=== PATIENT | male | born 1950 | race Caucasian/White ===

== ENCOUNTER 2018-08-21 07:57 | Inpatient (IN) ==
--- NOTE | 2018-08-09 12:59 | PAT Medication Instructions ---
Medication Instructions Date of Service August 09, 2018 Home Medications aspirin 81 mg PO HS clopidogrel 75 mg PO QAM enalapril maleate 5 mg PO BID metoprolol tartrate 25 mg PO BID rosuvastatin 10 mg PO Q2D Continue as directed rosuvastatin 10 mg PO Q2D ASK your prescriber and surgeon clopidogrel 75 mg PO QAM DO NOT take the morning of surgery enalapril maleate 5 mg PO BID Take morning of surgery With a small sip of water, OTHERWISE NOTHING TO EAT OR DRINK AFTER MIDNIGHT: metoprolol tartrate 25 mg PO BID Take evening before surgery aspirin 81 mg PO HS enalapril maleate 5 mg PO BID metoprolol tartrate 25 mg PO BID Other Notes If you have any questions please call us at [phone] or [phone] or [phone] or [phone]
--- NOTE | 2018-08-10 12:03 | Anesthesiology Consultation ---
Date of Service August 10, 2018 Assessment & Plan (1) Encounter for pre-operative examination: Possible difficult airway based on body habitus/neck. Cardiology 06/19/2018: "Continue aspirin lifelong. He remains on Plavix also due to LAD stenting x2... Heart rate and BP controlled. Continue guideline-based therapy with FLAKO and beta-isabelle. Echocardiogram reviewed. EF and wall motion are within normal limits. He has been getting back injections and is okay to hold Plavix for 5 days prior to injections. Due to normal EKG, echocardiogram and vital signs, no further testing is advised." Chart Review Chart Review: Acceptable Risk for Surgery and Patient seen in Pre Admission Testing Teaching & Discussion Instructed NPO after midnight before surgery, except medications with 15 cc of water. Medication instructions provided according to the PAT guidelines. History Surgery Operation Date: 08/21/18 12:25 Proposed Procedures p L5-S1 Decompression and Fusion - Supa Tejeda DO Height/Weight Height: 5 ft 11 in Weight: 136 kg Allergies Allergy/AdvReac Type Severity Reaction Status Date / Time No Known Allergies Allergy Mild Verified 08/08/18 08:40 Medications Home Medications Medication Instructions Recorded Confirmed Last Taken aspirin 81 mg PO HS 08/08/18 08/08/18 Unknown clopidogrel 75 mg PO QAM 08/08/18 08/08/18 Unknown enalapril maleate 5 mg PO BID 08/08/18 08/08/18 Unknown metoprolol tartrate 25 mg PO BID 08/08/18 08/08/18 Unknown rosuvastatin 10 mg PO Q2D 08/08/18 08/08/18 Unknown Past Medical History Medical History CAD (coronary artery disease) s/p CT 2003, cardiac cath x 2, total 4 stents Chronic back pain LOWER BACK PAIN WITH PAIN RADIATING DOWN LEFT LEG. Degenerative disc disease Hyperlipidemia Hypertension Morbid obesity Myocardial Infarction 2003. CARD[facility]AC CATH [facility], STENT PLACEMENT X2, RECATH 2 YEARS LATER, [facility] WITH 2 STENTS. Osteoarthritis Pulmonary emphysema Noted on pre-op CXR Sleep apnea NO DEVICE Past Surgical History Surgical History History of arthroscopy B/L KNEES History of bowel resection TUMOR EXCISION WITH BOWEL RESECTION. BENIGN History of cataract extraction with lens replacement B/L History of colonoscopy History of mandibular surgery for fracture History of open reduction and internal fixation (ORIF) procedure ARM Past Anesthesia History No Hx of Anesthesia Complications and No Family Hx of Anesthesia Complications History of PONV No Motion Sickness Screening History of Motion Sickness: No Social History Smoking Status: Current every day smoker tobacco type: cigarettes Smoking cigarettes per day: HX OF 3/4-1PPD Do You Dip or Chew Tobacco: No Hx Alcohol Use: No Alcohol Intake Frequency Comment: 0 Hx Substance Use: No substance use type: does not use Exercise / Class Metabolic Activity III < 4 Walking/Shop/Light housework (+occ mild SOB, no chest pain with stairs. Limited activity 2/2 back and hip pain.) Review of Systems Pt denies any recent chest pain, shortness of breath, palpitations, cough, fever or URI. Physical Exam Vital Signs BP: 108/71 P: 70bpm SPO2: 95% RA T: 97.9 F R: 18 Constitutional + morbidly obese ENMT Mouth: + macroglossia; no loose teeth Thyromental Distance: > or= 3.5 Finger Breadths (4) Mallampati Class: II Missing several teeth Neck + short neck, + thick neck (very) and + limited neck extension (mildly) Respiratory Auscultation: + diminished lung sounds (R lung, but no adventitious sounds in R lung) and + rhonchi (L lung diffuse); + lungs not clear to auscultation Cardiovascular Rate/Rhythm: regular rate and regular rhythm Heart Sounds: no murmur Vessels: no carotid bruit Extremities: no edema distant heart sounds Testing Electrocardiogram Date: 07/20/18 Findings: + NSR @ (72) Low voltage-possibly pulmonary disease. Chest X-Ray Date: 08/10/18 Findings suggest emphysema. No focal infiltrate to suggest pneumonia. Echocardiogram Date: 06/08/18 EF: 60% Technically limited transthoracic echocardiogram. Normal left ventricular chamber size, wall thickness and contractility. Normal left ventricular systolic function. Normal right ventricular size and function. Poorly visualized cardiac valves. Laboratory Results 08/10/18 12:11 08/10/18 12:11 Blood Type O Positive 08/10/18 12:11 Antibody Screen NEGATIVE 08/10/18 12:11 PT 10.4 Seconds (9.0-12.0) 08/10/18 12:11 INR 1.0 (0.9-1.1) 08/10/18 12:11 APTT 27.2 Seconds (21.0-31.0) 08/10/18 12:11 Urine Color Yellow 08/10/18 12:11 Urine Appearance Clear (Clear) 08/10/18 12:11 Urine pH 5.0 (4.5-7.5) 08/10/18 12:11 Ur Specific [place] 1.022 (1.000-1.030) 08/10/18 12:11 Urine Protein Negative (Negative) 08/10/18 12:11 Urine Glucose (UA) Negative (Negative) 08/10/18 12:11 Urine Ketones Negative (Negative) 08/10/18 12:11 Urine Nitrite Negative (Negative) 08/10/18 12:11 Ur Leukocyte Esterase Negative (Negative) 08/10/18 12:11
--- NOTE | 2018-08-10 13:01 | XRay Report ---
XR chest Pre-admission PA/Lat CLINICAL HISTORY: 68 years-old Male presenting with preoperative assessment. TECHNIQUE: PA and lateral views of the chest were obtained. COMPARISON: 10/10/2012. FINDINGS: Atherosclerosis of the aortic arch. Cardiac silhouette normal in size. Diffusely coarsened lung yumiko ngs with mild hyperinflation. No focal opacity. Pleural thickening along the mid right lung is unchan ged. No pleural effusion or pneumothorax. Degenerative changes of the thoracic spine. Upper abdomen n ormal. IMPRESSION: 1. Findings suggest emphysema. No focal infiltrate to suggest pneumonia. Electronically signed by: Dakotah Glaser M.D. 08/10/2018 12:59 PM
[2018-08-10 13:26] LABS: Basophils # (auto) 0.05 K/uL (0-0.2); Basophils % (auto) 0.4 %; Eosinophils # (auto) 0.46 K/uL (0-0.5); Eosinophils % (auto) 4.1 %; Hematocrit (blood only) 44.5 % (42-52); Hemoglobin 15.3 g/dL (14.0-18.0); Immature Granulocytes # (auto) 0.04 K/uL (0.00-0.02); Immature Granulocytes % (auto) 0.4 %; Lymphocytes % (auto) 30.5 %; Mean Corpuscular Hgb Conc 34.4 g/dL (32-36); Mean Corpuscular Volume 95.1 fL (80-100); Neutrophils % (auto) 55.6 %; Platelet Count 280 K/uL (130-400); RDW Coefficient of Variation 13.2 % (11.5-14.5); RDW Standard Deviation 45.7 fL (36.4-46.3); Red Blood Count 4.68 M/uL (4.7-6.1); White Blood Count 11.15 K/uL (4.8-10.8)
[2018-08-10 13:35] LABS: BUN Creatinine Ratio 13.9 (10-20); Calcium 9.4 mg/dl (8.5-10.1); Creatinine Clr Calc Pharmacy 96.3 ml/min; Est GFR (African American) 86.5; Est GFR (Non-African American) 74.6; Potassium 4.4 mmol/L (3.5-5.1)
[2018-08-10 13:37] LABS: Appearance Urine Clear (Clear); Bilirubin Urine Negative (Negative); Blood Urine Negative (Negative); Color Urine Yellow; Glucose Urine UA Negative (Negative); Ketones Urine Negative (Negative); Leukocyte Esterase Urine Negative (Negative); Nitrite Urine Negative (Negative); Protein Urine Negative (Negative); Specific Gravity Urine 1.022 (1.000-1.030); Urobilinogen Urine Negative (Negative)
[2018-08-10 13:42] LABS: Partial Thromboplastin Time 27.2 Seconds (21.0-31.0); Prothrombin Time 10.4 Seconds (9.0-12.0)
[~2018-08-21 07:57] MED LIST: ACETAMINOPHEN 500 MG TAB PO SCH; CEFAZOLIN 3000MG 65 ML IV SCH; CeleBREX 200 MG CAP PO SCH; GABAPENTIN 300 MG PO SCH; LR 15ML/HR IV SCH; PROPOFOL IV EMULSION 10 MG/ML 100 ML VIAL IV ONE
[2018-08-21] MEDS ORDERED: MIDAZOLAM HCL 1 MG/ML 2ML VIAL ONE (08:09)
[2018-08-21] MEDS ORDERED: fentaNYL citrate 100 MCG/2 ML VIAL ONE ×3 (08:09→12:34)
[2018-08-21] MEDS ORDERED: ePHEDrine sulfate 50 MG/ML AMP IV PRN (08:38)
[2018-08-21] MEDS ORDERED: fentaNYL citrate 100 MCG/2 ML VIAL IV PRN (08:38)
[2018-08-21] MEDS ORDERED: ONDANSETRON INJ 2 MG/ML 2 ML VIAL IV PRN ×2 (08:38→12:39)
[2018-08-21] MEDS ORDERED: ATROPINE SULFATE 0.1 MG/ML 10ML SYR IV PRN (08:38)
[2018-08-21] MEDS ORDERED: PROMETHAZINE HCL 6.25 MG in SODIUM CHLORIDE 0.9% 50 ML IV PRN (08:38)
[2018-08-21] MEDS ORDERED: HYDROmorphone INJ 2 MG/ML SYR/VIAL IV PRN (08:38)
--- NOTE | 2018-08-21 08:43 | History & Physical Bridge Note ---
Date of Service August 21, 2018 History & Physical Bridge Note I have examined the patient, reviewed the History & Physical and in the interval since the performance of the History & Physical I have noted the following changes of clinical significance: no changes noted
--- NOTE | 2018-08-21 08:44 | History & Physical Report ---
Date of Service August 21, 2018 Assessment & Plan (1) Spinal stenosis, lumbar region with neurogenic claudication: L5-S1 decompression and fusion Present on Admission?: Yes History of Present Illness Chief Complaint: Back and leg pain Primary Care Provider: Amna Pope MD This is a 68-year-old male presents with chronic persistent back and leg pain. After failing extensive course of nonoperative care is here for surgical intervention. Allergies Allergy/AdvReac Type Severity Reaction Status Date / Time No Known Allergies Allergy Mild Verified 08/21/18 08:21 Home Medications Home Medications Medication Instructions Recorded Confirmed Type aspirin 81 mg PO HS 08/08/18 08/21/18 History clopidogrel 75 mg PO QAM 08/08/18 08/21/18 History enalapril maleate 5 mg PO BID 08/08/18 08/21/18 History metoprolol tartrate 25 mg PO BID 08/08/18 08/21/18 History rosuvastatin 10 mg PO Q2D 08/08/18 08/21/18 History Past Med/Surg History Medical History CAD (coronary artery disease) s/p [place] 2003, cardiac cath x 2, total 4 stents Chronic back pain LOWER BACK PAIN WITH PAIN RADIATING DOWN LEFT LEG. Degenerative disc disease Hyperlipidemia Hypertension Morbid obesity Myocardial Infarction 2003. CARDIAC CATH IN [facility], STENT PLACEMENT X2, RECATH 2 YEARS LATER, [facility] WITH 2 STENTS. Osteoarthritis Pulmonary emphysema Noted on pre-op CXR Sleep apnea NO DEVICE Surgical History History of arthroscopy B/L KNEES History of bowel resection TUMOR EXCISION WITH BOWEL RESECTION. BENIGN History of cataract extraction with lens replacement B/L History of colonoscopy History of mandibular surgery for fracture History of open reduction and internal fixation (ORIF) procedure ARM Social History Preferred Language: Algerian Communication Ability: Effective Papier Mache Molder Required: No Beliefs That Will Affect Care: None Current Living Situation: Family Other Information That Helps Us Care for You: No Feels Safe at Home: Yes Safety Concerns: Feels Safe At This Time Smoking Status: Current every day smoker Tobacco Type: cigarettes Cigarettes Per Day: HX OF 3/4-1PPD Do You Dip or Chew Tobacco: No Second Hand Exposure: No Tobacco Cessation Education Requested by Patient: No Hx Alcohol Use: No Hx Substance Use: No Physical Exam Vital Signs (Past 24 Hours): Last Vital Signs Temp 36.7 C 08/21/18 08:35 Pulse 62 08/21/18 08:35 Resp 18 08/21/18 08:35 BP 121/74 08/21/18 08:35 Pulse Ox 97 08/21/18 08:35 Physical Exam: Patient is alert and oriented neurologically intact bilateral extremities.
[2018-08-21] MEDS ORDERED: BUPIVACAINE/EPINEPHRINE 0.5% MPF 1:200,000 30 ML VIAL ONE (09:00)
[2018-08-21] MEDS ORDERED: BACITRACIN INJ 50,000 UNIT VIAL ONE (09:00)
[2018-08-21] MEDS ORDERED: DEXAMETHASONE SOD INJ 4 MG/ML VIAL ONE (10:25)
[2018-08-21] MEDS ORDERED: GLYCOPYRROLATE 0.2 MG/ML VIAL ONE (10:25)
[2018-08-21] MEDS ORDERED: PROPOFOL IV EMULSION 10 MG/ML 20 ML VIAL IV ONE (10:25)
[2018-08-21] MEDS ORDERED: ePHEDrine sulfate 50 MG/ML SYR ONE (10:25)
[2018-08-21] MEDS ORDERED: LIDOCAINE HCL 2% 2 ML VIAL/AMP(20MG/ML) INFIL ONE (10:25)
[2018-08-21] MEDS ORDERED: PHENYLEPHRINE 100MCG/ML 5ML SYR ONE (10:25)
[2018-08-21] MEDS ORDERED: ROCURONIUM BROMIDE 10 MG/ML 5 ML VIAL ONE (10:25)
[2018-08-21] MEDS ORDERED: ONDANSETRON INJ 2 MG/ML 2 ML VIAL ONE (10:25)
[2018-08-21] MEDS ORDERED: NEOSTIGMINE METHYLSULFATE 1 MG/ML 10ML VIAL ONE (10:25)
[2018-08-21] MEDS ORDERED: FLOSEAL HEMOSTATIC MATRIX 10ML TOP ONE (10:49)
--- NOTE | 2018-08-21 11:08 | Operative Report ---
Post Operative Report Pre & Post Diagnosis Operation Date: 08/21/18 09:55 Pre-Op Diagnosis: Spinal stenosis, lumbar region with neurogenic claudication Post-Op Diagnosis: Spinal stenosis, lumbar region with neurogenic claudication Procedure Operation Date: 08/21/18 09:55 Actual Procedures #1 lumbar decompression medial facetectomies foraminotomies L4-5 L5-S1. #2 posterior spinal fusion L4 S1 per #3 please posterior instrumentation L5-S1 using globus. #4 interbody fusion L5-S1 per #5 placement of peek cage 12 x 26 mm L5-S1 per #6 placement of local autograft in the posterior lateral gutters. #7 placement infuse collagen sponge combined with mass graft in the posterior gutters and ostial amp in the interbody space. Surgeon Supa Tejeda, DO Vp Biology Chelly Gerber Estimated Blood Loss 300 Findings See Below This patient is 5 foot 11 136 kg with a BMI of 42 kg. The patient's body habitus created significant technical difficulty throughout the procedure requiring the longest deepest retractors and instruments to perform the procedure. This contributed to at least 50% increase in the total operative time. Specimens None Indications This is a 68-year-old male with significant stenosis and radiculopathy after failing extensive course of nonoperative care like to undergo the above- mentioned procedure. Description of Procedure Patient was met with identified and informed consent obtained. Patient was then taken to the operative suite and after undergoing successful intubation placed in a prone position the Jonnathan table top of the Lawrence frame. All bony prominences well-padded eyes inspected to ensure no external pressure placed upon the peer at this point the lumbar spine is prepped and draped in normal sterile fashion. Sharp dissection with the assistance of Bovie cautery was performed down to and exposing the lamina and transverse processes of L5 and sacral ala bilaterally. From calcified fashion complete laminectomy of L5 partial laminectomy of L4 was performed including bilateral medial facetectomies and foraminotomies addressing severe stenosis. Pedicle screws were then placed in L5 and S1 levels bilaterally with assistance of fluoroscopy the process sarah placed by way of a transforaminal approach on the right complete discectomy was performed in place coated to subcortical mean bone and a 12 x 26 mm peek cage filled with osteo-amp bone graft tapped in position. The rods and locked in final position. The transverse processes of L5 and sacral ala bur to subcortical bleeding bone. Infuse collagen sponge master graft local autograft placed in the posterior lateral gutters. If the nodule drain inserted. Incision was then closed with 1 Vicryl fascia 2-0 Vicryl subcutaneous and 4-0 Monocryl for final skin closure. Steri-Strips dressings placed. Patient will continue PACU stable disc. Please note Chelly Gerber present at the entire procedure involved in patient positioning complex portions of the surgery and final skin closure. Lastly spinal cord monitoring was utilized throughout the procedure and no changes were noted. I attest to the content of the Intraoperative Record and any orders documented therein. Any exceptions are noted below.
--- NOTE | 2018-08-21 12:25 | Anesthesiology Progress Note ---
Date of Service August 21, 2018 Anesthesia Post Procedure Vital Signs Vital Signs: Temp Pulse Pulse Resp BP Pulse Ox 08/21/18 12:15 59 L 16 117/63 97 08/21/18 12:05 36.6 C 64 13 122/59 L 97 08/21/18 11:55 64 18 106/74 97 08/21/18 11:45 68 18 116/63 99 08/21/18 11:35 72 14 129/62 99 08/21/18 11:28 36.2 C L 71 20 123/66 99 08/21/18 08:35 36.7 C 62 18 121/74 97 Pain Intensity Back: Pain Intensity: 2 Transfer of Care Handoff Completed per policy Notes Mental Status: alert / awake / arousable Patient Amnestic to Procedure: Yes Nausea / Vomiting: adequately controlled Pain: adequately controlled Airway Patency, RR, SpO2: stable & adequate BP & HR: stable & adequate Hydration State: stable & adequate Anesthetic Complications: no major complications apparent
[2018-08-21] MEDS ORDERED: BISACODYL 10 MG SUPP PR PRN (12:39)
[2018-08-21] MEDS ORDERED: SOD PHOSPHATE/SOD BIPHOSPHATE ENEMA 132 ML BTL PR PRN (12:39)
[2018-08-21] MEDS ORDERED: LORazepam 0.5 MG/1 ML VIAL IV PRN (12:39)
[2018-08-21] MEDS ORDERED: ACETAMINOPHEN 1,000 MG/100 ML VIAL IV PRN (12:39)
[2018-08-21] MEDS ORDERED: FAMOTIDINE 20 MG TAB PO PRN (12:39)
[2018-08-21] MEDS ORDERED: DO NOT ADMINISTER PNEUMOCOCCAL VACCINE PRN (12:39)
[2018-08-21] MEDS ORDERED: LORazepam 0.5 MG TAB PO PRN (12:39)
[2018-08-21] MEDS ORDERED: TRAMADOL HCL 50 MG TABLET PO PRN (12:39)
[2018-08-21] MEDS ORDERED: ALUMINUM/MAGNESIUM SUSP 30 ML UDC PO PRN (12:39)
[2018-08-21] MEDS ORDERED: DO NOT ADMINISTER FLU VACCINE PRN (12:39)
[2018-08-21] MEDS ORDERED: ONDANSETRON 4 MG TAB PO PRN (12:39)
[2018-08-21] MEDS ORDERED: METOCLOPRAMIDE HCL INJ 5 MG/ML 2 ML VIAL IV PRN (12:39)
[2018-08-21] MEDS ORDERED: HYDROmorphone INJ 0.5 MG/0.5 ML SYR IV PRN (12:39)
[2018-08-21] MEDS ORDERED: ACETAMINOPHEN 500 MG TAB PO PRN (12:39)
[2018-08-21] MEDS ORDERED: PROMETHAZINE HCL 12.5 MG in SODIUM CHLORIDE 0.9% 50 ML IV PRN (12:39)
[2018-08-21] MEDS ORDERED: MAGNESIUM HYDROXIDE SUSP 30 ML UDC PO PRN (12:39)
--- NOTE | 2018-08-21 13:10 | Fluoroscopy Report ---
FL lumbar spine 2-3V CLINICAL HISTORY: L5-S1 DECOMPRESSION AND FUSION COMPARISON STUDY: None FLUOROSCOPY TIME: 15 seconds NUMBER OF FLUOROSCOPIC IMAGES: 2 FINDINGS: Image intensifier utilization for an L5-S1 laminectomy and fusion IMPRESSION: Image intensifier utilization 4 and L5-S1 laminectomy and fusion The above report was generated using voice recognition software. It may contain grammatical, syntax or spelling errors. Electronically signed by: Favian Carrero M.D. 08/21/2018 1:08 PM
[2018-08-21] MEDS: KETOROLAC TROMETHAMINE 15 MG/ML VIAL IV SCH ×2 (13:47→20:27)
[2018-08-21] MEDS: SODIUM CHLORIDE 0.9% 1000ML 1,000 ML IV SCH ×2 (13:47→20:26)
[2018-08-21] MEDS: OXYCODONE HCL IR 5 MG TAB (IMMEDIATE RELEASE) PO PRN (16:04)
[2018-08-21] MEDS: CEFAZOLIN 2000MG 2,000 MG/15 ML SYR IV SCH (16:04)
--- NOTE | 2018-08-21 19:18 | Consultation ---
Date of Consultation August 21, 2018 Assessment & Plan (1) Spinal stenosis, lumbar region with neurogenic claudication: POD#0 from L4-S1 decompression and fusion -pain control, bowel regimen as per Ortho -JUVENTINO drain in place PT ordered -follow CBC and BMP in AM (2) CAD (coronary artery disease): Stable for many years, has normal EF on most recent ECHO 2019. With 2 stents in LAD in 2003 and stent in RCA 2006. Follows with [facility] -continue ASA -Plavix on hold and restart when ok with Ortho -continue metoprolol tartrate 25mg po bid -continue Crestor every other day due to myalgias with daily dosing -holding ACEi for now (3) Hyperlipidemia: continue statin (4) Hypertension: Controlled -continue metoprolol -holding ACEi for now, watch renal function in AM (5) Sleep apnea: does not use CPAP (6) Morbid obesity: BMI 42 -counseld on weight loss and he is committed to doing so (7) Pulmonary emphysema: due to ongoing smoking -some wheeze on exam here -order prn abuterol nebs (8) Current smoker: Counseled on quitting and he is contemplating (9) DVT prophylaxis: SCDs Dispo-remain in hospital Hospitalist service will follow along History of Present Illness Requesting Physician: Dr. Tejeda Reason for Consultation: Post-op medical management Attending Physician: Supa Tejeda, History of Present Illness This pt is a 68 yo male with a h/o CAD s/p 2 stents to main LAD and another to the RCA in 2003 and 2006, respectively, obesity, lumbar spinal stenosis, HTN, HL, current smoker, ?COPD, h/o ischemic CM now resolved, and neuropathy, here post-op from a L4-S1 decompression and fusion. Reports pain is controlled, is ambulating around the room. No chest pain or SOB except his usual REYES "from being overweight." No nausea nd is tolerating po. History reviewed with him in detaila nd reviewed all scanned in outpt records Allergies Allergy/AdvReac Type Severity Reaction Status Date / Time No Known Allergies Allergy Mild Verified 08/21/18 08:21 Home Medications Home Medications Medication Instructions Recorded Confirmed Type aspirin 81 mg PO HS 08/08/18 08/21/18 History clopidogrel 75 mg PO QAM 08/08/18 08/21/18 History enalapril maleate 5 mg PO BID 08/08/18 08/21/18 History metoprolol tartrate 25 mg PO BID 08/08/18 08/21/18 History rosuvastatin 10 mg PO Q2D 08/08/18 08/21/18 History Patient History Medical History Chronic back pain LOWER BACK PAIN WITH PAIN RADIATING DOWN LEFT LEG. Degenerative disc disease Hyperlipidemia Hypertension Myocardial Infarction 2003. CARDIAC CATH IN [facility], STENT PLACEMENT X2, RECATH 2 YEARS LATER, [facility] WITH 2 STENTS. Osteoarthritis Sleep apnea NO DEVICE CAD (coronary artery disease) s/p [place] 2003, cardiac cath x 2, total 4 stents Morbid obesity Pulmonary emphysema Noted on pre-op CXR Surgical History History of arthroscopy B/L KNEES History of bowel resection TUMOR EXCISION WITH BOWEL RESECTION. BENIGN History of cataract extraction with lens replacement B/L History of colonoscopy History of open reduction and internal fixation (ORIF) procedure ARM History of mandibular surgery for fracture Family History Mother Colorectal cancer Diabetes Social History Preferred Language: Persian Communication Ability: Effective Recruitment Officer Required: No Beliefs That Will Affect Care: None Current Living Situation: Family current occupational status: retired Other Information That Helps Us Care for You: No Feels Safe at Home: Yes Safety Concerns: Feels Safe At This Time Smoking Status: Current every day smoker Tobacco Type: cigarettes Cigarettes Per Day: HX OF 3/4-1PPD Do You Dip or Chew Tobacco: No Second Hand Exposure: No Tobacco Cessation Education Requested by Patient: No Hx Alcohol Use: No Hx Substance Use: No Review of Systems Review of Systems: All systems reviewed & are unremarkable except as noted in HPI & below Physical Exam Constitutional: WD/WN, vitals as above + morbidly obese Eyes: PERRL, conjunctivae normal, anicteric sclerae ENMT: external ear and nose normal, oropharynx normal Neck: trachea midline, no thyromegaly Respiratory: normal respiratory effort, lungs clear to auscultation Cardiovascular: RRR, no murmur, no edema Gastrointestinal (Abdomen): normal bowel sounds, soft, nontender, no hepatosplenomegaly Musculoskeletal: Extremities: extremities normal to inspection; no cyanosis and no clubbing Skin: no rashes, warm and dry (dressing in place over lower back c/d/i) Neurologic: moves all extremities and awake; no focal motor deficits Psychiatric: A+Ox3, euthymic affect Results & Data Vital Signs (Past 12 Hours) Vital Signs Temp Pulse Pulse Pulse Pulse Resp BP 08/21/18 15:31 36.7 C 74 20 151/74 H 08/21/18 14:30 82 20 109/69 08/21/18 13:30 36.8 C 60 20 134/77 08/21/18 13:00 36.4 C L 62 18 119/70 08/21/18 12:30 36.5 C 58 L 58 L 18 102/66 08/21/18 12:15 59 L 16 117/63 08/21/18 12:05 36.6 C 64 13 122/59 L 08/21/18 11:55 64 18 106/74 08/21/18 11:45 68 18 116/63 08/21/18 11:35 72 14 129/62 08/21/18 11:28 36.2 C L 71 20 123/66 08/21/18 08:35 36.7 C 62 18 121/74 Pulse Ox 08/21/18 15:31 98 08/21/18 14:30 97 08/21/18 13:30 96 08/21/18 13:00 97 08/21/18 12:30 96 08/21/18 12:15 97 08/21/18 12:05 97 08/21/18 11:55 97 08/21/18 11:45 99 08/21/18 11:35 99 08/21/18 11:28 99 08/21/18 08:35 97
[2018-08-21] MEDS: ASPIRIN 81 MG CHEW PO SCH (20:28)
[2018-08-21] MEDS: METOPROLOL TARTRATE 25 MG TAB PO SCH (20:29)
[2018-08-21] MEDS: DOCUSATE SODIUM/SENNA 50/8.6MG TAB PO SCH (20:29)
[2018-08-22] MEDS ORDERED: ALBUTEROL 0.083% NEBU SOLN 3 ML VIAL NEB PRN (00:24)
[2018-08-22] MEDS: CEFAZOLIN 2000MG 2,000 MG/15 ML SYR IV SCH (01:17)
[2018-08-22] MEDS: KETOROLAC TROMETHAMINE 15 MG/ML VIAL IV SCH ×2 (01:17→07:47)
[2018-08-22] MEDS: SODIUM CHLORIDE 0.9% 1000ML 1,000 ML IV SCH (02:50)
[2018-08-22] MEDS: POLYETHYLENE (MIRALAX) 17 GM PACK PO SCH ×4 (05:47→23:35)
[2018-08-22 07:16] LABS: Hematocrit (blood only) 38.9 % (42-52); Hemoglobin 13.2 g/dL (14.0-18.0); Mean Corpuscular Hgb Conc 33.9 g/dL (32-36); Mean Platelet Volume 9.5 fL (7.4-10.4); Platelet Count 211 K/uL (130-400); RDW Standard Deviation 44.8 fL (36.4-46.3); Red Blood Count 4.14 M/uL (4.7-6.1); White Blood Count 23.08 K/uL (4.8-10.8)
[2018-08-22 07:46] LABS: Echinocytes 1+; Immature Granulocytes # (auto) 0.07 K/uL (0.00-0.02); Immature Granulocytes % (auto) 0.3 %; Lymphocytes # (auto) 1.17 K/uL (1.2-3.4); Lymphocytes % (auto) 5.1 %; Monocytes # (auto) 1.08 K/uL (0.11-0.59); Monocytes % (auto) 4.7 %; Neutrophils # (auto) 20.76 K/uL (1.4-6.5); Neutrophils % (auto) 89.9 %
[2018-08-22 07:49] LABS: BUN Creatinine Ratio 22.4 (10-20); Calcium 8.2 mg/dl (8.5-10.1); Creatinine Clr Calc Pharmacy 83.4 ml/min; Est GFR (African American) 72.5; Est GFR (Non-African American) 62.6; Potassium 4.7 mmol/L (3.5-5.1)
--- NOTE | 2018-08-22 07:49 | Anesthesiology Progress Note ---
Date of Service August 22, 2018 Anesthesia Post Procedure Vital Signs Vital Signs: Temp Pulse Pulse Pulse Pulse Resp BP 08/22/18 07:16 36.4 C L 61 20 111/62 08/22/18 02:48 36.4 C L 57 L 18 111/65 08/21/18 22:42 36.3 C L 67 16 120/63 08/21/18 19:30 36.6 C 81 20 124/69 08/21/18 15:31 36.7 C 74 20 151/74 H 08/21/18 14:30 82 20 109/69 08/21/18 13:30 36.8 C 60 20 134/77 08/21/18 13:00 36.4 C L 62 18 119/70 08/21/18 12:30 36.5 C 58 L 58 L 18 102/66 08/21/18 12:15 59 L 16 117/63 08/21/18 12:05 36.6 C 64 13 122/59 L 08/21/18 11:55 64 18 106/74 08/21/18 11:45 68 18 116/63 08/21/18 11:35 72 14 129/62 08/21/18 11:28 36.2 C L 71 20 123/66 08/21/18 08:35 36.7 C 62 18 121/74 Pulse Ox 08/22/18 07:16 97 08/22/18 02:48 94 08/21/18 22:42 92 08/21/18 19:30 97 08/21/18 15:31 98 08/21/18 14:30 97 08/21/18 13:30 96 08/21/18 13:00 97 08/21/18 12:30 96 08/21/18 12:15 97 08/21/18 12:05 97 08/21/18 11:55 97 08/21/18 11:45 99 08/21/18 11:35 99 08/21/18 11:28 99 08/21/18 08:35 97 Pain Intensity Back: Pain Intensity: 3 Notes Mental Status: alert / awake / arousable Patient Amnestic to Procedure: Yes Nausea / Vomiting: adequately controlled Pain: adequately controlled Airway Patency, RR, SpO2: stable & adequate BP & HR: stable & adequate Hydration State: stable & adequate Anesthetic Complications: no major complications apparent
[2018-08-22] MEDS: METOPROLOL TARTRATE 25 MG TAB PO SCH ×2 (08:45→21:34)
[2018-08-22] MEDS: OXYCODONE HCL IR 5 MG TAB (IMMEDIATE RELEASE) PO PRN ×2 (09:48→21:38)
--- NOTE | 2018-08-22 14:21 | Orthopedic Progress Note ---
Date of Service August 22, 2018 Assessment & Plan (1) Spinal stenosis, lumbar region with neurogenic claudication: Patient's progressing appropriately. Tolerating physical therapy. JUVENTINO drain decreasing probably. Hopefully will be able to discharge home next few days. Present on Admission?: Yes Subjective Patient's back pain is controlled leg symptoms Physical Exam Physical Exam: On exam is good strength testing is been ambulating halls appears comfortable. Results & Data Vital Signs (Past 12 Hours) Vital Signs Temp Pulse Resp BP Pulse Ox 08/22/18 11:27 36.5 C 69 17 115/57 L 96 08/22/18 07:16 36.4 C L 61 20 111/62 97 08/22/18 02:48 36.4 C L 57 L 18 111/65 94
[2018-08-22] MEDS: DOCUSATE SODIUM/SENNA 50/8.6MG TAB PO SCH (21:33)
[2018-08-22] MEDS: ASPIRIN 81 MG CHEW PO SCH (21:34)
[2018-08-22] MEDS ORDERED: ROSUVASTATIN CALCIUM 10 MG TAB PO SCH (22:00)
[2018-08-22 23:07] VITALS: O2SAT 96
--- NOTE | 2018-08-23 00:17 | Hospitalist Progress Note ---
Date of Service Date of service is 08/22/2018 and not 08/23/2018 August 23, 2018 Assessment & Plan (1) Spinal stenosis, lumbar region with neurogenic claudication: POD#1 from L4-S1 decompression and fusion-doing very well postoperatively -Continue pain control, bowel regimen as per Ortho PT Hemoglobin with only mild drop to 13 from 15, leukocytosis secondary to steroids preoperatively and not concerning -Postoperative management as per orthopedic spine surgeon (2) CAD (coronary artery disease): Stable for many years, has normal EF on most recent ECHO 2018. With 2 stents in LAD in 2003 and stent in RCA 2006. Follows with [facility] No evidence of acute coronary syndrome in the perioperative. -continue ASA -Plavix remains on hold and restart when ok with Ortho -continue metoprolol tartrate 25mg po bid -continue Crestor every other day due to myalgias with daily dosing -Continue holding ACEi for now as blood pressures are low normal-can likely restart upon discharge (3) Hyperlipidemia: continue statin (4) Hypertension: Controlled -continue metoprolol -holding ACEi for now, can restart on discharge as above (5) Sleep apnea: does not use CPAP (6) Morbid obesity: BMI 42 -counseled on weight loss and he is committed to doing so (7) Pulmonary emphysema: due to ongoing smoking -some wheeze on exam here that is now improved Not requiring oxygen -Continue prn abuterol nebs (8) Current smoker: Counseled on quitting and he is contemplating (9) DVT prophylaxis: SCDs Dispo-remain in hospital but likely to discharge to home in 1 to 2 days Hospitalist service will sign off at this time as patient is very medically stable. Please feel free to reconsult or call if any acute concerns arise. Discussed with Dr. Tejeda. Subjective Patient feeling very well, he ambulated today, pain is controlled in the lower back. He has no radicular pain down the legs. He denies chest pain or shortness of breath, denies lightheadedness or nausea. He is tolerating p.o. He has no complaints. He has not moved his bowels but feels like it is about to happen soon. Review of Systems Review of Systems: All systems reviewed & are unremarkable except as noted in HPI & below Physical Exam Constitutional: WD/WN, vitals as above + morbidly obese Eyes: PERRL, conjunctivae normal, anicteric sclerae ENMT: external ear and nose normal, oropharynx normal Neck: trachea midline, no thyromegaly Respiratory: normal respiratory effort, lungs clear to auscultation Cardiovascular: RRR, no murmur, no edema Gastrointestinal (Abdomen): normal bowel sounds, soft, nontender, no hepatosplenomegaly Musculoskeletal: Extremities: extremities normal to inspection; no cyanosis and no clubbing Skin: no rashes, warm and dry (dressing in place over lower back c/d/i) Neurologic: moves all extremities and awake; no focal motor deficits Psychiatric: A+Ox3, euthymic affect Results & Data Vital Signs (Past 12 Hours) Vital Signs Temp Pulse Resp BP Pulse Ox 08/22/18 23:06 36.5 C 61 18 115/63 96 08/22/18 15:10 36.5 C 61 16 115/62 94 Laboratory Results 08/22/18 08/22/18 Range/Units 06:58 06:58 WBC 23.08 H (4.8-10.8) K/uL RBC 4.14 L (4.7-6.1) M/uL Hgb 13.2 L (14.0-18.0) g/dL Hct 38.9 L (42-52) % MCV 94.0 (80-100) fL MCH 31.9 (25-34) pg MCHC 33.9 (32-36) g/dL RDW Std Deviation 44.8 (36.4-46.3) fL RDW Coeff of Grace 13.0 (11.5-14.5) % Plt Count 211 (130-400) K/uL MPV 9.5 (7.4-10.4) fL Immature Gran % (Auto) 0.3 % Neut % (Auto) 89.9 % Lymph % (Auto) 5.1 % [place] % (Auto) 4.7 % Eos % (Auto) 0.0 % Baso % (Auto) 0.0 % Immature Gran # (Auto) 0.07 H (0.00-0.02) K/uL Neut # (Auto) 20.76 H (1.4-6.5) K/uL Lymph # (Auto) 1.17 L (1.2-3.4) K/uL [place] # (Auto) 1.08 H (0.11-0.59) K/uL Eos # (Auto) 0.00 (0-0.5) K/uL Baso # (Auto) 0.00 (0-0.2) K/uL Echinocytes 1+ Sodium 136 (136-145) mmol/L Potassium 4.7 (3.5-5.1) mmol/L Chloride 106 (98-107) mmol/L Carbon Dioxide 25 (21-32) mmol/L Anion Gap 5.0 (3-11) BUN 26 H (7-18) mg/dl Creatinine 1.18 (0.6-1.4) mg/dl Est Cr Clr Drug Dosing 83.4 ml/min Est GFR ( Amer) 72.5 Est GFR (Non-Af Amer) 62.6 BUN/Creatinine Ratio 22.4 H (10-20) Glucose 123 H (70-99) mg/dl Calcium 8.2 L (8.5-10.1) mg/dl
[2018-08-23] MEDS: POLYETHYLENE (MIRALAX) 17 GM PACK PO SCH ×2 (06:02→13:22)
[2018-08-23 06:56] VITALS: BP 137/65; TEMP 97.3
[2018-08-23] MEDS: OXYCODONE HCL IR 5 MG TAB (IMMEDIATE RELEASE) PO PRN (07:44)
[2018-08-23] MEDS: METOPROLOL TARTRATE 25 MG TAB PO SCH (07:45)
[2018-08-23 12:20] VITALS: PULSE 62
--- NOTE | 2018-08-23 14:24 | Orthopedic Progress Note ---
Date of Service August 23, 2018 Assessment & Plan (1) Spinal stenosis, lumbar region with neurogenic claudication: This time we will discontinue his drain and discharge home. Discharge orders and instructions found in chart for further review. Present on Admission?: Yes Subjective Patient's back pain is controlled leg symptoms improved. Physical Exam Physical Exam: Exam is good strength testing appears comfortable. Results & Data Vital Signs (Past 12 Hours) Vital Signs Temp Pulse Pulse Resp BP Pulse Ox 08/23/18 12:19 36.3 C L 62 69 20 137/65 96 08/23/18 06:55 36.3 C L 69 20 137/65 96
--- NOTE | 2018-08-23 14:25 | Discharge Summary ---
Date of Service August 23, 2018 Admission HPI Per Admitting Provider This is a 68-year-old male presents with chronic persistent back and leg pain. After failing extensive course of nonoperative care is here for surgical intervention. Principal Diagnosis Lumbar spinal stenosis with radiculopathy Discharge Data Allergies Allergy/AdvReac Type Severity Reaction Status Date / Time No Known Allergies Allergy Mild Verified 08/21/18 08:21 Consultations 08/21/18 12:39 Consult Case Management - Discharge Planning Routine 08/21/18 13:01 Consult Hospitalist Routine Procedures Performed Operation Date: 08/21/18 09:55 Actual Procedures p L5-S1 Decompression and Fusion with Spinal Cord Monitoring(Not Applicable) - Supa Tejeda DO Ordered Studies 08/21/18 09:55 FL fluoroscopy <1hr Routine FL lumbar spine 2-3V Routine Hospital Course (1) Spinal stenosis, lumbar region with neurogenic claudication: Postop day #1 his leg symptoms are improved he was up and ambulate and well. Progressive postop day #2. JUVENTINO drain decreasing appropriately. Subsequently discharged home. Discharge orders and instructions from the chart for further review. Total Time Total Time Spent Total Time Spent (In Minutes): 20 minutes Discharge Plan Discharge Items Patient Disposition: Home - Self-Care Reason For Visit: Other Biomechanical Lesions of Lumbar Region Discharge Diagnosis: lumbar stenosis Discharge Goals: Improve function Activity: Per 'Additional Instructions' section Non-emergency contact: Primary Care Provider Call non-emergency contact if: you have any medication questions Follow-up/Referrals: Amna Pope MD [Primary Care Provider] - Diet: Regular Addtl Provider Instructions: ACTIVITY RECOMMENDATIONS: SELF CARE INSTRUCTIONS AFTER THORACIC/LUMBAR FUSIONS 1. You may walk to your tolerance. It is good exercise for your legs and back. Expect some back and intermittent leg aches and pains. 2. You may perform "counter-top" level activities (make a sandwich, kei with a project, etc.). 3. No bending or lifting of more than 10 pounds or back twisting of any nature (roll like a log when turning in bed). 4. You may ride in a car for 20-30 minutes at a time. No driving until after your first visit with your doctor. 5. Frequent changes of position and restricting sitting to 30 minutes at a time will help limit the amount of back spasms and stiffness you may experience. 6. You may discontinue the use of ambulatory aids (cane, crutches, etc.) once your strength and confidence allow. 7. You may soils engineer the shower and let water strike your incision when you arrive home at least once daily. Do not take a tub bath, sit in a hot tub or go into a swimming pool until after your first recheck in the office. SPECIAL CARE INSTRUCTIONS: VERY IMPORTANT TO READ AND REVIEW A. Your surgical incision has been closed with a cosmetic suture under the skin that will dissolve in about 6 weeks. In 14 days, you can use a pair of clean scissors and cut the suture that is left outside of the skin at the ends of your incision. 1. The small skin tapes can be removed 7 days after surgery if they have not fallen off by that point. 2. You may keep the wound open to air as much as possible to promote healing after post-op day number 5 unless told otherwise by your doctor. 3. If you think the wound looks like it is becoming infected (redness or worsening drainage) and/or you are experiencing fever, chill or worsening back pain and muscle spasms, contact the office so that we may evaluate you as soon as possible. B. Complications are uncommon, but please contact us if you have any signs or symptoms of: 1. wound infection (fever higher than 102.5 degrees F, redness, separation of wound, drainage, or increasing pain from the incision) 2. blood clots in legs (pain, swelling, redness and warmth in legs) 3. urinary tract infection (fever higher than 102.5 degrees F, burning upon urination or increased frequency of urination) 4. nerve problems (inability to walk on your toes or heels, numbness, loss of bowel or bladder control) 5. any other symptoms that concern you C. Please call the office at if you have any concerns or questions about your operation or recovery. D. No smoking! Smoking drastically decreases the chance of a solid fusion. E. Do not take any anti-inflammatory medications (Indocin, Advil, Motrin, Aspirin, Naprosyn, etc.) as these may inhibit the chance of a solid fusion. Tylenol is okay to take for pain. MANAGING PAIN AFTER SPINAL SURGERY 1. Narcotic medication is intended for short-term use and will be provided for surgical pain. Surgical pain usually lasts for a period of 4-6 weeks. Narcotic medication includes Percocet, Vicodin, Darvocet, Tylenol #3 or Lortab. 2. Longer-term pain is more appropriately treated with non-narcotic medication such as Tylenol ES. 3. Muscle spasm is not appropriately treated with narcotics. Muscle relaxers such as Soma, Flexeril or Skelaxin can be used along with Tylenol ES. 4. Remember that we all live with some "aches and pains". This is not unusual or uncommon after an injury or as we get older. a. Back pain is expected and may include muscle spasms for 4 to 6 weeks after surgery. The pain should gradually improve. If the pain worsens for no apparent reason, please contact the office. b. Intermittent leg pain may also be experienced and should not be concerned about unless it worsens for no apparent reason. If so, please contact the office. 5. We will provide appropriate medication within the normal guidelines of their prescribed use. We will also be very cautious and aware of potential abuse and extended duration of patients' medication needs. a. Pain medications are for your comfort and to assist with sleep and rest so that the tissue can heal. They are not provided in order to return to normal activity and should not be used through the day. To do so or worsening pain at night can result from ongoing tissue damage and development of tolerance to the prescribed medicine. 6. Please allow 2-3 days to process refills. Prescriptions will not be mailed but must be picked up at the office. FOLLOW UP VISIT: Keep your scheduled follow-up appointment. Any questions, please call the office at . Prescriptions: New tramadol 50 mg Tablet 50 mg PO Q4H PRN (Reason: Pain, Moderate) Qty: 30 RF: 0 oxycodone 5 mg Tablet 5 mg PO Q4H PRN (Reason: Pain, Severe) Qty: 30 RF: 0 Continued aspirin 81 mg Tablet,Chewable 81 mg PO HS RF: 0 rosuvastatin 10 mg Tablet 10 mg PO Q2D RF: 0 enalapril maleate 5 mg Tablet 5 mg PO BID RF: 0 clopidogrel 75 mg Tablet 75 mg PO QAM RF: 0 metoprolol tartrate 25 mg Tablet 25 mg PO BID RF: 0 Stand-Alone Forms: [facility] [place], [facility] [employer]/Other Patient Handouts: Safety Back Into and Out Bed Discharge Orders: Discharge Order (Routine); Ordered 08/23/18 Ordered By: Supa Tejeda Admission Data Admit Date/Time: 08/21/18 11:52 Attending Provider: Supa Tejeda Admit Provider: Supa Tejeda Primary Care Provider: Amna Pope Other Providers: Blade Mata ; Olga Thomas Service: Surgical Services Other Interventions: Discharge Summary Assessment (RN) Last Done: 08/23/18 12:19
== END 2018-08-23 15:11 | disposition home or self-care (01) | DRG 454 ==
LOC: ASU 07:57 → 3E 11:52

== ENCOUNTER 2018-08-28 13:38 | Observation (INO) ==
[2018-08-28] MEDS ORDERED: HYDROmorphone INJ 1 MG/ML SYRINGE IV PRN (14:05)
[2018-08-28] MEDS ORDERED: ONDANSETRON 4 MG OD TAB PO STA (14:05)
[2018-08-28 14:35] LABS: Mean Corpuscular Hgb Conc 34.4 g/dL (32-36); Mean Platelet Volume 9.3 fL (7.4-10.4); Platelet Count 277 K/uL (130-400)
[2018-08-28 14:56] LABS: Albumin Level 2.9 gm/dl (3.4-5.0); BUN Creatinine Ratio 16.9 (10-20); Creatinine Clr Calc Pharmacy 105.8 ml/min; Est GFR (Non-African American) 84.6; Potassium 4.1 mmol/L (3.5-5.1)
[2018-08-28 15:00] LABS: Albumin Globulin Ratio 0.7 (0.9-2); Bilirubin,Total 0.4 mg/dl (0.2-1); Total Protein 6.9 gm/dl (6.4-8.2)
[2018-08-28 15:31] LABS: ALC (manual) 2.86 K/uL (1.2-3.4); Basophils % (manual) 0.9 %; Eosinophils # (manual) 0.41 K/uL (0-0.5); Eosinophils % (manual) 3.5 %; Hematocrit (blood only) 38.7 % (42-52); Hemoglobin 13.3 g/dL (14.0-18.0); Lymphocytes # (manual) 2.86 K/uL (1.2-3.4); Lymphocytes % (manual) 24.6 %; Mean Corpuscular Volume 94.2 fL (80-100); Monocytes # (manual) 0.92 K/uL (0.11-0.59); Monocytes % (manual) 7.9 %; Myelocytes % (manual) 0.9 %; Neutrophils % (manual) 62.2 %; RDW Coefficient of Variation 13.1 % (11.5-14.5); RDW Standard Deviation 45.1 fL (36.4-46.3); Red Blood Count 4.11 M/uL (4.7-6.1); White Blood Count 11.63 K/uL (4.8-10.8)
--- NOTE | 2018-08-28 15:50 | History & Physical Report ---
Date of Service August 28, 2018 Assessment & Plan (1) Spinal stenosis, lumbar region with neurogenic claudication: At this time I would like to admit the patient for a short course of IV steroids to control some of the inflammation. Would initiate physical therapy in the a.m. and assess his progress. Hopefully be able to discharge home soon as possible. Present on Admission?: Yes History of Present Illness Chief Complaint: Left leg pain Primary Care Provider: Amna Pope MD This is a 68-year-old male well-known to me status post lumbar decompression fusion little over week ago. He been doing nicely postoperatively but over the past day or so began experiencing left leg pain. The pain seems to be dominant in the left buttock posterior thigh occasionally below the knee. It is associated with weightbearing. He gets relief with sitting and lying supine. He denies any fevers or chills denies any right lower extremity pain denies any recent trauma fall or event. Allergies Allergy/AdvReac Type Severity Reaction Status Date / Time No Known Allergies Allergy Mild Verified 08/28/18 15:14 Home Medications Home Medications Medication Instructions Recorded Confirmed Type aspirin 81 mg PO HS 08/08/18 08/28/18 History clopidogrel 75 mg PO QAM 08/08/18 08/28/18 History enalapril maleate 5 mg PO BID 08/08/18 08/28/18 History metoprolol tartrate 25 mg PO BID 08/08/18 08/28/18 History rosuvastatin 10 mg PO Q2D 08/08/18 08/28/18 History tramadol 50 mg PO Q4H PRN #30 tab 08/23/18 08/28/18 Rx Past Med/Surg History Social History Preferred Language: Syriac Communication Ability: Effective Beliefs That Will Affect Care: None Current Living Situation: Family current occupational status: retired Feels Safe at Home: Yes Smoking Status: Current every day smoker Tobacco Type: cigarettes Cigarettes Per Day: HX OF 3/4-1PPD Second Hand Exposure: No Hx Alcohol Use: No Hx Substance Use: No Physical Exam Vital Signs (Past 24 Hours): Last Vital Signs Temp 36.8 C 08/28/18 13:41 Pulse 93 H 08/28/18 15:04 Resp 20 08/28/18 15:04 BP 105/50 L 08/28/18 15:04 Pulse Ox 92 08/28/18 15:04 Physical Exam: On exam incisions healing appropriately. Steri-Strips are in place. There is some ecchymosis across the bilateral buttocks. He exhibits a plus 5 out of 5 right plantar flexion dorsiflexion quadricep on the left he has some modest 4+/5 dorsiflexion 5/5 quadricep. He is very comfortable sitting in the side of the bed. He has no tension signs with straight leg raising. He does have difficulty when I have him stand with reproduction of pain in the left buttock.
[2018-08-28] MEDS ORDERED: LORazepam 1 MG/2 ML VIAL IV PRN (17:57)
[2018-08-28] MEDS ORDERED: LORazepam 1 MG TAB PO PRN (17:57)
[2018-08-28] MEDS ORDERED: PROMETHAZINE HCL 12.5 MG in SODIUM CHLORIDE 0.9% 50 ML IV PRN (17:57)
[2018-08-28] MEDS ORDERED: ACETAMINOPHEN 325 MG TAB PO PRN (17:57)
[2018-08-28] MEDS ORDERED: TRAMADOL HCL 50 MG TABLET PO PRN ×2 (17:57)
[2018-08-28] MEDS ORDERED: ONDANSETRON INJ 2 MG/ML 2 ML VIAL IV PRN (17:57)
[2018-08-28] MEDS: dexAMETHasone 8 MG in SYRINGE 0 ML IV SCH (18:30)
[2018-08-28] MEDS: LACTATED RINGER'S 1,000 ML IV SCH (18:30)
[2018-08-28] MEDS: OXYCODONE/ACETAMINOPHEN 5mg/325mg TAB PO PRN (19:44)
--- NOTE | 2018-08-28 20:26 | XRay Report ---
XR lumbar spine min 4V routine CLINICAL HISTORY: 68 years-old Male presenting with postop. TECHNIQUE: Frontal, bilateral oblique, lateral, and cone-down lateral views of the lumbar spine were obtained in standing position. COMPARISON: MR of the lumbar spine from 05/17/2018. FINDINGS: There has been interval bilateral posterior transpedicular screw and sarah fixation of L5-S1 with inter body spacer placement and L5 laminectomy. No hardware breakage or gross malalignment allowing for sen sitivity of radiography. Mild levocurvature centered at L2-3 with resulting eccentric disc height loss on the right at L2-3. O therwise lumbar lordosis is preserved. Minimal anterior vertebral body height loss of L2 is similar t o prior exam. No new vertebral body height loss. Mild multilevel intervertebral disc height loss with multilevel osteophytosis noted. IMPRESSION: 1. Expected postsurgical appearance status post L5-S1 posterior lumbar fusion and laminectomy. 2. Multilevel degenerative changes and scoliosis as on prior MR. Electronically signed by: Dakotah Glaser M.D. 08/28/2018 8:25 PM
--- NOTE | 2018-08-28 20:38 | Emergency Department Note ---
Entered by Benigno Hernández acting as a scribe for Octaviano Nowak MD ED Provider Note CHIEF COMPLAINT: left-sided hip, leg and back pain s/p lumbar fusion HISTORY OF PRESENT ILLNESS: The patient is a 68 year old male who presents to the Emergency Room with complaints of persistent left-sided hip, leg and back pain. The patient reports that one week ago he had fusion of L4 and L5 performed by Dr. Tejeda. He states that he was doing well until he was discharged home a few days later, and he now reports 12/10 pain when walking. He rates it 3/10 when at rest. He states that his current pain is the same pain he experienced before the surgery, and he denies any new numbness, weakness or tingling. He has been taking oxycodone and Tramadol without significant improvement. He denies any problems with bowel or bladder control. He also denies fevers aside from a couple days after surgery, and there has been no significant drainage from the site of incision per family. The patient came to the ER after calling Dr. Quintana office prior to arrival. Pt denies LOC, headache, diaphoresis, visual changes, neck pain, chest pain, breathing difficulties, nausea, vomiting, abdominal pain, back pain, melena, hematochezia, urinary symptoms, lymphadenopathy, rash, or other complaints. REVIEW OF SYSTEMS: See HPI for pertinent positives and negatives. A total of ten systems were reviewed and were otherwise negative. PMHx/PSHx: s/p lumbar fusion hypertension CAD SOCIAL HISTORY: Patient lives at home. PHYSICAL EXAM: GENERAL: Awake, alert, uncomfortable-appearing, in no distress HENT: Normocephalic, atraumatic. Oropharynx unremarkable. EYES: PERRL. Normal conjunctiva. Sclera non-icteric. NECK: Inspection normal. Non-tender. Supple. No nuchal rigidity. FROM. No masses. RESPIRATORY: Clear to auscultation. No wheezes. No rales. Normal respiratory ef fort. CARDIAC: Normal rate. Normal rhythm. No murmurs. No rubs. Extremities warm and well perfused. Pulses equal. No JVD. GI: Soft, non-distended. No tenderness to palpation. No rebound or guarding. No masses. RECTAL: Deferred. MUSCULOSKELETAL: Atraumatic. Chest examination reveals no tenderness. Left sciatic notch tenderness to palpation. There is ecchymosis in the lumbar region. The incision is clean, dry and intact. Steri-strips are in place and there is no drainage. There is no CVA tenderness to palpation. No joint edema. LOWER EXTREMITIES: Calves are equal size bilaterally and non-tender. No edema. No discoloration. NEURO: Normal sensorium. No sensory or motor deficits noted. SKIN: No rash or jaundice noted. EMERGENCY DEPARTMENT COURSE: 1402: Past medical records reviewed. The patient was evaluated in room A3, and a complete history and physical examination were performed. 1524: I consulted Dr. Tejeda Spinal Surgery, who will evaluate the patient. 1623: Dr. Tejeda has evaluated the patient, and he will be hospitalized. MEDICAL DECISION MAKING: Patient presented with postoperative back pain. Etiologies such as postoperative pain, fracture, aortic disease, metastatic disease, infection, renal colic, gastrointestinal, lumbago, sciatica, cauda equina, as well as others were entertained. He was treated with IV Dilaudid and Zofran. He felt somewhat better although still had pain with movement. He did have a slight drop in his blood pressure temporarily after the medication. The patient had unremarkable CBC and chemistry panel except for slight leukocytosis although this is better. He did receive steroids with surgery. He has no saddle anesthesia or bowel or bladder incontinence. I did consult with his spine surgeon, Dr. Tejeda. He did evaluate him in the ER. He admitted him for pain control and further management. Please see his note. IMPRESSION: Postoperative back pain PLAN: evaluation by Dr. Tejeda The scribe's documentation has been prepared under my direction and personally reviewed by me in its entirety. I confirm that the note above accurately reflects all work, treatment, procedures, and medical decision making performed by me. Impression & Plan Back pain Past Med/Surg History Medical History CAD (coronary artery disease) s/p [place] 2003, cardiac cath x 2, total 4 stents Chronic back pain LOWER BACK PAIN WITH PAIN RADIATING DOWN LEFT LEG. Degenerative disc disease Hyperlipidemia Hypertension Morbid obesity Myocardial Infarction 2003. CARDIAC CATH IN [facility], STENT PLACEMENT X2, RECATH 2 YEARS LATER, AKHIL WITH 2 STENTS. Osteoarthritis Pulmonary emphysema Noted on pre-op CXR Sleep apnea NO DEVICE Surgical History History of arthroscopy B/L KNEES History of bowel resection TUMOR EXCISION WITH BOWEL RESECTION. BENIGN History of cataract extraction with lens replacement B/L History of colonoscopy History of mandibular surgery for fracture History of open reduction and internal fixation (ORIF) procedure ARM Family History Mother Colorectal cancer Diabetes Social History Preferred Language: Upper Sorbian Communication Ability: Effective Place Change Roof Bolter Required: No Beliefs That Will Affect Care: None Current Living Situation: Family and Significant Other current occupational status: retired Other Information That Helps Us Care for You: No Feels Safe at Home: Yes Safety Concerns: Feels Safe At This Time Smoking Status: Current every day smoker Tobacco Type: cigarettes Cigarettes Per Day: 15-20 Do You Dip or Chew Tobacco: No Second Hand Exposure: No Tobacco Cessation Education Requested by Patient: No Hx Alcohol Use: No Hx Substance Use: No Results & Data Vital Signs Vital Signs - 24 hr 08/28/18 13:41 08/28/18 15:04 08/28/18 15:06 Temperature 36.8 C Temperature Source Oral Sepsis Recent Fever Within 48 Hours No Sepsis New/Unexplained Change in Mental Status No Sepsis Action Taken by Nursing No Action Required Pulse Rate 70 59 L Pulse Rate [Left Finger] 93 H Pulse Rate from SpO2 Sensor 59 L Respiratory Rate 20 20 17 Respiratory Depth Normal Blood Pressure 124/69 114/41 L Blood Pressure [Right Arm] 105/50 L Blood Pressure Mean 87 65 Blood Pressure Mean [Right Arm] 68 Blood Pressure Position Sitting Blood Pressure Position [Right Arm] Lying Pulse Oximetry 95 92 93 Oxygen Delivery Method Room Air Room Air 08/28/18 15:32 08/28/18 16:19 08/28/18 16:31 Temperature Temperature Source Sepsis Recent Fever Within 48 Hours Sepsis New/Unexplained Change in Mental Status Sepsis Action Taken by Nursing Pulse Rate 67 59 L 63 Pulse Rate [Left Finger] Pulse Rate from SpO2 Sensor Respiratory Rate 16 16 15 Respiratory Depth Blood Pressure 82/55 L 126/76 144/91 H Blood Pressure [Right Arm] Blood Pressure Mean 64 92 108 Blood Pressure Mean [Right Arm] Blood Pressure Position Blood Pressure Position [Right Arm] Pulse Oximetry Oxygen Delivery Method Home Medications Current Medication List: was personally reviewed by me Laboratory Data Attestation: I reviewed the patient's lab results. Result diagrams: 08/28/18 14:22 08/28/18 14:22 Lab Results 08/28/18 08/28/18 Range/Units 14:22 14:22 WBC 11.63 H (4.8-10.8) K/uL RBC 4.11 L (4.7-6.1) M/uL Hgb 13.3 L (14.0-18.0) g/dL Hct 38.7 L (42-52) % MCV 94.2 (80-100) fL MCH 32.4 (25-34) pg MCHC 34.4 (32-36) g/dL RDW Std Deviation 45.1 (36.4-46.3) fL RDW Coeff of Grace 13.1 (11.5-14.5) % Plt Count 277 (130-400) K/uL MPV 9.3 (7.4-10.4) fL Neutrophils % (Manual) 62.2 % Lymphocytes % (Manual) 24.6 % Monocytes % (Manual) 7.9 % Eosinophils % (Manual) 3.5 % Basophils % (Manual) 0.9 % Myelocytes % (Man) 0.9 % Neutrophils # (Manual) 7.23 H (1.4-6.5) K/uL Total Absolute Neuts 7.23 H (1.4-6.5) K/uL Lymphocytes # (Manual) 2.86 (1.2-3.4) K/uL Total Abs Lymphocytes 2.86 (1.2-3.4) K/uL Monocytes # (Manual) 0.92 H (0.11-0.59) K/uL Eosinophils # (Manual) 0.41 (0-0.5) K/uL Basophils # (Manual) 0.10 (0-0.2) K/uL Myelocytes # (Manual) 0.10 H (0-0) K/uL Sodium 136 (136-145) mmol/L Potassium 4.1 (3.5-5.1) mmol/L Chloride 102 (98-107) mmol/L Carbon Dioxide 26 (21-32) mmol/L Anion Gap 8.0 (3-11) BUN 16 (7-18) mg/dl Creatinine 0.92 (0.6-1.4) mg/dl Est Cr Clr Drug Dosing 105.8 ml/min Est GFR ( Amer) 98.0 Est GFR (Non-Af Amer) 84.6 BUN/Creatinine Ratio 16.9 (10-20) Glucose 97 (70-99) mg/dl Calcium 9.0 (8.5-10.1) mg/dl Total Bilirubin 0.4 (0.2-1) mg/dl AST 22 (15-37) U/L ALT 31 (12-78) U/L Alkaline Phosphatase 103 (45-117) U/L Total Protein 6.9 (6.4-8.2) gm/dl Albumin 2.9 L (3.4-5.0) gm/dl Globulin 4.0 (2.5-4.0) gm/dl Albumin/Globulin Ratio 0.7 L (0.9-2) Administered Medications Lactated Ringer's (Lr) 1,000 mls @ 75 mls/hr IV .[id number] RAQUEL Stop: 09/27/18 17:56 Last Admin: 08/28/18 18:30 Dose: 75 mls/hr Documented by: [id number] Dexamethasone 8 mg/ Syringe 2 mls @ 1 mls/min IV Q8H RAQUEL Stop: 08/29/18 10:01 Last Admin: 08/28/18 18:30 Dose: 1 mls/min Documented by: [id number] Oxycodone/Acetaminophen (Percocet 5mg/325mg) 1 - 2 tab PO Q4H PRN PRN Reason: moderate to severe pain Stop: 09/11/18 17:56 Last Admin: 08/28/18 19:44 Dose: 2 tab Documented by: [id number] Discontinued Medications Hydromorphone HCl (Dilaudid) 1 mg IV Q15M PRN PRN Reason: Pain Stop: 09/11/18 14:04 Last Admin: 08/28/18 14:43 Dose: 1 mg Documented by: [id number] Ondansetron HCl (Zofran Odt) 4 mg PO NOW STA Stop: 08/28/18 14:06 Last Admin: 08/28/18 14:43 Dose: 4 mg Documented by: [id number] Blood Pressure Blood Pressure Findings: Low blood pressure Additional Comments: further management by Dr. Tejeda Discharge Plan Visit Data *Final* Discharge Date/Time: 08/28/18 16:59 Chief Complaint: Hip Pain Stated Complaint: PAIN IN LT HIP INTO LEG,S/P BACK SURG ED Provider: Octaviano Nowak Discharge Problem: Back pain Patient Disposition: Admitted As Inpatient Discharge Instructions Interventions: ED Discharge Assessment Last Done: 08/28/18 16:59 Discharge Problem: Back pain Qualifiers: Back pain location: back pain in unspecified location Chronicity: unspecified Back pain laterality: left Qualified Code(s): M54.9 - Dorsalgia, unspecified The scribe's documentation has been prepared under my direction and personally reviewed by me in its entirety. I confirm that the note above accurately reflects all work, treatment, procedures, and medical decision making performed by me.
[2018-08-28] MEDS ORDERED: ENALAPRILAT 1.25 MG/ML 1 ML VIAL SCH (21:00)
[2018-08-28] MEDS ORDERED: ROSUVASTATIN CALCIUM 10 MG TAB PO SCH (21:00)
[2018-08-28] MEDS: METOPROLOL TARTRATE 25 MG TAB PO SCH (21:08)
[2018-08-28] MEDS: ASPIRIN 81 MG ECTAB PO SCH (21:08)
[2018-08-28] MEDS: DOCUSATE SODIUM 100 MG CAP PO SCH (21:08)
[2018-08-28] MEDS: ENALAPRIL MALEATE 5 MG TAB PO SCH (21:08)
[2018-08-29] MEDS: dexAMETHasone 8 MG in SYRINGE 0 ML IV SCH ×2 (02:02→09:57)
[2018-08-29] MEDS: LACTATED RINGER'S 1,000 ML IV SCH ×2 (08:01→20:14)
[2018-08-29] MEDS: ENALAPRIL MALEATE 5 MG TAB PO SCH ×2 (08:02→20:16)
[2018-08-29] MEDS: METOPROLOL TARTRATE 25 MG TAB PO SCH ×2 (08:02→20:15)
[2018-08-29] MEDS: DOCUSATE SODIUM 100 MG CAP PO SCH ×2 (08:03→20:15)
[2018-08-29] MEDS: CLOPIDOGREL BISULFATE 75 MG TAB PO SCH (08:03)
--- NOTE | 2018-08-29 12:46 | Orthopedic Progress Note ---
Date of Service August 29, 2018 Assessment & Plan (1) Spinal stenosis, lumbar region with neurogenic claudication: This time we will continue physical therapy. Monitor his progress. Anticipate discharge home tomorrow. Present on Admission?: Yes Subjective Patient feels his buttock pain is much improved since yesterday. He is ambling with a walker tolerating this well. Physical Exam Physical Exam: On exam he is up and ambulating about the room with a walker. Incision is clean dry intact. Strength is intact. Results & Data Vital Signs (Past 12 Hours) Vital Signs Temp Pulse Resp BP Pulse Ox 08/29/18 07:42 36.3 C L 57 L 16 100/51 L 94
[2018-08-29] MEDS: ASPIRIN 81 MG ECTAB PO SCH (20:15)
[2018-08-29] MEDS: OXYCODONE/ACETAMINOPHEN 5mg/325mg TAB PO PRN (20:21)
[2018-08-30] MEDS: METOPROLOL TARTRATE 25 MG TAB PO SCH (09:23)
[2018-08-30] MEDS: ENALAPRIL MALEATE 5 MG TAB PO SCH (09:24)
[2018-08-30] MEDS: DOCUSATE SODIUM 100 MG CAP PO SCH (09:24)
[2018-08-30] MEDS: CLOPIDOGREL BISULFATE 75 MG TAB PO SCH (09:24)
[2018-08-30] MEDS: LACTATED RINGER'S 1,000 ML IV SCH (10:04)
--- NOTE | 2018-08-30 12:37 | Discharge Summary ---
Date of Service August 30, 2018 Admission HPI Per Admitting Provider This is a 68-year-old male well-known to me status post lumbar decompression fusion little over week ago. He been doing nicely postoperatively but over the past day or so began experiencing left leg pain. The pain seems to be dominant in the left buttock posterior thigh occasionally below the knee. It is associated with weightbearing. He gets relief with sitting and lying supine. He denies any fevers or chills denies any right lower extremity pain denies any recent trauma fall or event. Principal Diagnosis Postop back pain Discharge Data Allergies Allergy/AdvReac Type Severity Reaction Status Date / Time No Known Allergies Allergy Mild Verified 08/28/18 15:14 Consultations 08/28/18 16:27 ED Decision to Admit Stat Hospital Course (1) Back pain: Patient was admitted with postoperative back and left buttock pain. He was neurologically intact upon admission but obviously uncomfortable. Patient was admitted and underwent physical therapy and a short course of IV steroids. His symptoms responded dramatically. He is much more comfortable. Subsequently discharged home. Discharge orders and instructions found in the chart for fu rther review. Total Time Total Time Spent Total Time Spent (In Minutes): 20 minutes Discharge Plan Discharge Items Patient Disposition: Home - Home Health Services Reason For Visit: BACK PAIN Discharge Diagnosis: back and leg pain Discharge Goals: Decrease discomfort Activity: Per 'Additional Instructions' section Non-emergency contact: Primary Care Provider Call non-emergency contact if: you have any medication questions Follow-up/Referrals: Amna Pope MD [Primary Care Provider] - Diet: Regular Addtl Provider Instructions: ACTIVITY RECOMMENDATIONS: SELF CARE INSTRUCTIONS AFTER THORACIC/LUMBAR FUSIONS 1. You may walk to your tolerance. It is good exercise for your legs and back. Expect some back and intermittent leg aches and pains. 2. You may perform "counter-top" level activities (make a sandwich, kei with a project, etc.). 3. No bending or lifting of more than 10 pounds or back twisting of any nature (roll like a log when turning in bed). 4. You may ride in a car for 20-30 minutes at a time. No driving until after your first visit with your doctor. 5. Frequent changes of position and restricting sitting to 30 minutes at a time will help limit the amount of back spasms and stiffness you may experience. 6. You may discontinue the use of ambulatory aids (cane, crutches, etc.) once your strength and confidence allow. 7. You may manager technical training the shower and let water strike your incision when you arrive home at least once daily. Do not take a tub bath, sit in a hot tub or go into a swimming pool until after your first recheck in the office. SPECIAL CARE INSTRUCTIONS: VERY IMPORTANT TO READ AND REVIEW A. Your surgical incision has been closed with a cosmetic suture under the skin that will dissolve in about 6 weeks. In 14 days, you can use a pair of clean scissors and cut the suture that is left outside of the skin at the ends of your incision. 1. The small skin tapes can be removed 7 days after surgery if they have not fallen off by that point. 2. You may keep the wound open to air as much as possible to promote healing after post-op day number 5 unless told otherwise by your doctor. 3. If you think the wound looks like it is becoming infected (redness or worsening drainage) and/or you are experiencing fever, chill or worsening back pain and muscle spasms, contact the office so that we may evaluate you as soon as possible. B. Complications are uncommon, but please contact us if you have any signs or symptoms of: 1. wound infection (fever higher than 102.5 degrees F, redness, separation of wound, drainage, or increasing pain from the incision) 2. blood clots in legs (pain, swelling, redness and warmth in legs) 3. urinary tract infection (fever higher than 102.5 degrees F, burning upon urination or increased frequency of urination) 4. nerve problems (inability to walk on your toes or heels, numbness, loss of bowel or bladder control) 5. any other symptoms that concern you C. Please call the office at if you have any concerns or questions about your operation or recovery. D. No smoking! Smoking drastically decreases the chance of a solid fusion. E. Do not take any anti-inflammatory medications (Indocin, Advil, Motrin, Aspirin, Naprosyn, etc.) as these may inhibit the chance of a solid fusion. Tylenol is okay to take for pain. MANAGING PAIN AFTER SPINAL SURGERY 1. Narcotic medication is intended for short-term use and will be provided for surgical pain. Surgical pain usually lasts for a period of 4-6 weeks. Narcotic medication includes Percocet, Vicodin, Darvocet, Tylenol #3 or Lortab. 2. Longer-term pain is more appropriately treated with non-narcotic medication such as Tylenol ES. 3. Muscle spasm is not appropriately treated with narcotics. Muscle relaxers such as Soma, Flexeril or Skelaxin can be used along with Tylenol ES. 4. Remember that we all live with some "aches and pains". This is not unusual or uncommon after an injury or as we get older. a. Back pain is expected and may include muscle spasms for 4 to 6 weeks after surgery. The pain should gradually improve. If the pain worsens for no apparent reason, please contact the office. b. Intermittent leg pain may also be experienced and should not be concerned about unless it worsens for no apparent reason. If so, please contact the office. 5. We will provide appropriate medication within the normal guidelines of their prescribed use. We will also be very cautious and aware of potential abuse and extended duration of patients' medication needs. a. Pain medications are for your comfort and to assist with sleep and rest so that the tissue can heal. They are not provided in order to return to normal activity and should not be used through the day. To do so or worsening pain at night can result from ongoing tissue damage and development of tolerance to the prescribed medicine. 6. Please allow 2-3 days to process refills. Prescriptions will not be mailed but must be picked up at the office. FOLLOW UP VISIT: Keep your scheduled follow-up appointment. Any questions, please call the office at . Prescriptions: Continued aspirin 81 mg Tablet,Chewable 81 mg PO HS RF: 0 rosuvastatin 10 mg Tablet 10 mg PO Q2D RF: 0 enalapril maleate 5 mg Tablet 5 mg PO BID RF: 0 clopidogrel 75 mg Tablet 75 mg PO QAM RF: 0 metoprolol tartrate 25 mg Tablet 25 mg PO BID RF: 0 tramadol 50 mg Tablet 50 mg PO Q4H PRN (Reason: Pain, Moderate) Qty: 30 RF: 0 Stand-Alone Forms: [email or web address] Patient Handouts: Safety Back Into and Out Bed Discharge Orders: Discharge Order (Routine); Ordered 08/30/18 Ordered By: Supa Tejeda Admission Data Admit Date/Time: 08/28/18 15:53 Attending Provider: Supa Tejeda Admit Provider: Supa Tejeda Primary Care Provider: Amna Pope Other Providers: Supa Tejeda Service: Surgical Services Other Interventions: Discharge Summary Assessment (RN) Last Done: 08/30/18 10:11 DC Date/Time DO NOT enter until pt leaves facility: 08/30/18 12:25
== END 2018-08-30 12:25 | disposition home health service (06) ==
LOC: 3N 13:38 → ED 13:38 → 3N 16:59

== ENCOUNTER 2023-08-12 23:59 | Inpatient (IN) ==
--- NOTE | 2023-08-13 00:27 | Emergency Department Note ---
Impression & Plan Dyspnea, Acute exacerbation of chronic obstructive pulmonary disease (COPD) ED Provider Note ED Provider Note NAME: SY RODRIGUEZ AGE:73 SEX: Male : 1950 ARRIVES VIA: Private vehicle INFORMANT: Patient ED PROVIDER(s): Vannessa Blanca DO CHIEF COMPLAINT: Increased shortness of breath HPI: This is a 73-year-old male who presents emerged department due to increased shortness of breath over the last 2 to 3 days. Patient states he has a history of difficulty breathing and has been seeing a animal laboratory technician. He states he also recently followed up with his engineering technical analyst as he has a history of coronary artery disease and has for indwelling coronary stents. Patient states he underwent outpatient lung testing and was given a new inhaler to try. States he also had an outpatient echo and saw his engineering technical analyst in follow-up. He states he has been using his albuterol inhaler pretty frequently. He states the new inhaler was a sample that he was given by pulmonology and the regular 1 has not yet arrived. He states he did have some improvement following the use of this. He does not take daily steroids. He denies fevers, chills, or other URI symptoms. He states he does have chest tightness with the increased trouble breathing and is more short of breath with any exertion. He denies any recent leg swelling. Denies nausea, vomiting, change in urine, or change in bowel movements. PAST MEDICAL HISTORY:See Below PAST SURGICAL HISTORY:See Below FAMILY HISTORY:See Below SOCIAL HISTORY:See Below HOME MEDICATIONS:See Below ALLERGIES:See Below VITALS:See Below PHYSICAL EXAMINATION: GENERAL: alert, well nourished, no distress, non-toxic, BMI 43 EYE EXAM: normal conjunctiva, PERRL and EOM's grossly intact OROPHARYNX: no exudate, no erythema, lips, buccal mucosa, and tongue normal and mucous membranes are moist NECK: supple, no nuchal rigidity, no adenopathy, non-tender LUNGS: Decreased bilaterally to auscultation. Normal chest wall mechanics, no r/r, scattered expiratory wheeze HEART: no murmurs, S1 normal and S2 normal ABDOMEN: abdomen soft, non-tender, normo-active bowel sounds, no masses, no rebound or guarding. BACK: Back is symmetrical on inspection and there is no deformity, no midline tenderness, no CVA tenderness. SKIN: no rashes, petechiae, orbruising UPPER EXTREMITIES: upper extremities are grossly normal. FROM, nml pulses b/l. Clubbing noted in all digits. LOWER EXTREMITIES: No pitting edema. FROM, nml pulses b/l. NEURO EXAM: Normal sensorium, cranial nerves II-XII grossly intact, normal speech, no facial droop,nogross weakness of arms, no gross weakness of legs. Gross sensation intact. No ataxia. Vital Signs: reviewed and remarkable Differential Diagnosis: pneumonia, bronchitis, COPD/Asthma exacerbation, pneumothorax, pulmonary embolism, congestive heart failure, acute coronary syndrome, as well as others were considered MEDICAL DECISION MAKING: This is a 73-year-old male with a history of chronic bronchitis/emphysema presents due to worsening shortness of breath particularly with exertion over the last several days despite using his home MDI. Patient was afebrile vital signs stable on arrival. Labs drawn and sent, IV established, EKG and chest ray performed bedside interpreted me and patient monitored on telemetry. Patient was started on an hour-long DuoNeb upon arrival due to markedly diminished breath sounds and faint scattered end expiratory wheeze. He was started on gentle IV fluid hydration, and given IV Solu-Medrol additionally. Patient did have some improvement both on auscultation as well as subjectively after the first continuous nebulizer. After additional discussion at bedside, IV magnesium was added, doxycycline, and a second continuous nebulizer given. Patient did have marked improvement of air movement and decreased wheezing, however still had any increased difficulty breathing with any exertion and did still drop his oxygen saturation to 88%. Given concern for likely significant COPD exacerbation as well as history of underlying CAD, case discussed with hospitalist team for additional evaluation and management. No evidence for CHF. I do not suspect PE. Consultation(s): 0526: Discussed with Dr. Barroso, [place] hospitalist, for additional evaluation. ER Treatment Provided: See below 0247: Patient states he is feeling improved, he is now sitting up at the side of the bed. Patient with increased air movement on repeat auscultation however still does have scattered expiratory wheezes. Patient was noted on my entrance into the room to have an oxygen saturation of 88%. He states he does check his oxygen at home periodically and it is usually in the low 90s. Diagnostics Interpreted By Me: -ECG: -Cardiac Monitoring: An order was placed for continuous cardiac monitoring. The monitor shows a rate of 82 with normal sinus rhythm. -Laboratory studies: As stated above and show below. -Imaging studies: X-ray Chest: A single view study of the chest was reviewed and was negative for cardiomegaly, focal infiltrate, effusion, pulmonary edema, or wide mediastinum. Triage Nursing Note Reviewed Prior/Outside Records Reviewed -reviewed recent pulmonology visit from June 2023 as well as recent outpatient echo in July 2023 Critical Care: Critical care of 41 min performed to assess and manage high likelihood of life- threatening acute hypoxic respiratory failure, involving labs and imaging performed with assessment to evaluate acute hypoxic respiratory failure diagnosis] with frequent reassessment. This time includes bedside time, treatment discussions with patient/family/consultants, documentation time and excludes procedure time. Past Med/Surg History Medical History Pulmonary emphysema Noted on pre-op CXR Morbid obesity CAD (coronary artery disease) s/p [place] 2003, cardiac cath x 2, total 4 stents Osteoarthritis Chronic back pain LOWER BACK PAIN WITH PAIN RADIATING DOWN LEFT LEG. Degenerative disc disease Sleep apnea NO DEVICE Myocardial Infarction 2003. [facility]ARD[facility]AC C[facility], STENT PLACEMENT X2, RECATH 2 YEARS LATER, AKHIL WITH 2 STENTS. Hypertension Hyperlipidemia Surgical History History of mandibular surgery for fracture History of cataract extraction with lens replacement B/L History of arthroscopy B/L KNEES History of open reduction and internal fixation (ORIF) procedure ARM History of bowel resection TUMOR EXCISION WITH BOWEL RESECTION. BENIGN History of colonoscopy Family History Mother Colorectal cancer Diabetes Social History Smoking Status: Current some day smoker Tobacco Type: Cigarettes Cigarettes Per Day: 15-20; Second Hand Exposure: Yes; Do You Dip or Chew Tobacco: No; Hx Alcohol Use: Yes Hx Substance Use: No Preferred Language: Ukrainian Communication Ability: Effective Adapted Physical Education Specialist Required: No Beliefs That Will Affect Care: None marital status: Single Current Living Situation: Alone current occupational status: retired Feels Safe at Home: Yes Assistive Devices: None Allergies Allergies Allergy/AdvReac Type Severity Reaction Status Date / Time No Known Allergies Allergy Mild Verified 08/13/23 01:04 Home Meds Home Medications Medication Instructions Recorded Confirmed aspirin 81 mg chewable tablet 81 mg PO HS 08/08/18 08/13/23 clopidogrel 75 mg tablet 75 mg PO QAM 08/08/18 08/13/23 enalapril maleate 5 mg tablet 5 mg PO BID 08/08/18 08/13/23 metoprolol tartrate 25 mg tablet 25 mg PO BID 08/08/18 08/13/23 rosuvastatin 10 mg tablet 10 mg PO Q2D 08/08/18 08/13/23 Previous Rx's Medication Instructions Recorded albuterol sulfate 90 mcg/actuation 2 puff inhalation Q6H PRN 06/23/23 aerosol inhaler Shortness Of Breath Or Wheezing #18 grams Auto Titrating CPAP #1 ea 07/13/23 CPAP Supplies #1 ea 07/13/23 Results & Data (ED) Vital Signs Vital Signs - 24 hr 08/13/23 00:01 08/13/23 00:37 08/13/23 01:06 Temperature 36.9 C Temperature Source Temporal Artery Scan Pulse Rate 78 Pulse Rate [Apical] 72 Respiratory Rate 20 22 21 Respiratory Effort / Characteristics Spontaneous Short of Breath Blood Pressure 149/69 H Blood Pressure [Right Arm] 119/52 L Blood Pressure Mean 95 Blood Pressure Mean [Right Arm] 74 Pulse Oximetry 92 91 95 Oxygen Delivery Method Room Air Room Air Sepsis Recent Fever Within 48 Hours No Sepsis New/Unexplained Change in Mental Status No Sepsis Action Taken by Nursing No Action Required 08/13/23 01:53 08/13/23 03:17 08/13/23 05:22 Temperature Temperature Source Pulse Rate Pulse Rate [Apical] 73 110 H Respiratory Rate 19 22 Respiratory Effort / Characteristics Non-Labored Spontaneous Blood Pressure Blood Pressure [Right Arm] Blood Pressure Mean Blood Pressure Mean [Right Arm] Pulse Oximetry 93 90 93 Oxygen Delivery Method Room Air Room Air Room Air Sepsis Recent Fever Within 48 Hours Sepsis New/Unexplained Change in Mental Status Sepsis Action Taken by Nursing 08/13/23 05:35 Temperature Temperature Source Pulse Rate Pulse Rate [Apical] Respiratory Rate Respiratory Effort / Characteristics Blood Pressure Blood Pressure [Right Arm] 116/50 L Blood Pressure Mean Blood Pressure Mean [Right Arm] 72 Pulse Oximetry Oxygen Delivery Method Sepsis Recent Fever Within 48 Hours Sepsis New/Unexplained Change in Mental Status Sepsis Action Taken by Nursing Laboratory Data 08/13/23 00:32 08/13/23 00:32 Lab Results 08/13/23 08/13/23 Range/Units 00:32 01:00 WBC 8.95 (4.8-10.8) K/ul RBC 5.25 (4.70-6.10) M/uL Hgb 16.4 (14.0-18.0) g/dl Hct 50.9 (42.0-52.0) % MCV 97.0 (80.0-100.0) fL MCH 31.2 (25.0-34.0) pg MCHC 32.2 (32.0-36.0) g/dL RDW Std Deviation 46.7 H (36.4-46.3) fL RDW Coeff of Grace 13.2 (11.5-14.5) % Plt Count 245 (130-400) K/uL MPV 9.9 (9.4-12.4) fL Immature Gran % (Auto) 0.4 % Neut % (Auto) 67.6 % Lymph % (Auto) 20.2 % [place] % (Auto) 10.8 % Eos % (Auto) 0.1 % Baso % (Auto) 0.9 % Neut # (Auto) 6.04 (1.40-6.50) K/uL Lymph # (Auto) 1.81 (1.20-3.40) K/uL [place] # (Auto) 0.97 H (0.11-0.59) K/uL Eos # (Auto) 0.01 (0.00-0.50) K/uL Baso # (Auto) 0.08 (0.00-0.20) K/uL Immature Gran # (Auto) 0.04 (0.01-0.20) K/uL PT 11.0 (9.0-12.0) Seconds INR 1.0 (0.9-1.1) Sodium 139 (136-145) mmol/L Potassium 4.4 (3.5-5.1) mmol/L Chloride 101 (98-107) mmol/L Carbon Dioxide 31 (21-32) mmol/L Anion Gap 7 (3-11) BUN 17 (6-23) mg/dl Creatinine 1.19 (0.6-1.4) mg/dl Est Cr Clr Drug Dosing 78.1 ml/min Est GFR ( Amer) 69.3 ml/min Est GFR (Non-Af Amer) 59.8 ml/min BUN/Creatinine Ratio 14.3 (10-20) Glucose 102 H (70-99(Fasting)) mg/dl Calcium 9.1 (8.6-10.3) mg/dl Magnesium 1.8 (1.7-2.4) mg/dl Total Bilirubin 0.3 (0.2-1.0) mg/dl AST 19 (13-39) U/L ALT 17 (7-52) U/L Alkaline Phosphatase 101 (34-104) U/L Troponin I High Sens 6.5 (0-20) pg/ml Total Protein 7.7 (6.0-8.3) gm/dl Albumin 4.3 (3.4-5.0) gm/dl Globulin 3.4 (2.5-4.0) gm/dl Albumin/Globulin Ratio 1.3 (0.9-2) Lipase 22 (11-82) U/L Adenovirus (PCR) Not Detected (NotDetected) B. pertussis DNA (PCR) Not Detected (NotDetected) B.parapertussis DNA PCR Not Detected (NotDetected) C. pneumoniae DNA (PCR) Not Detected (NotDetected) Coronavirus OC43 (PCR) Not Detected (NotDetected) Coronavirus HKU1 (PCR) Not Detected (NotDetected) Coronavirus 229E (PCR) Not Detected (NotDetected) SARS-CoV-2 (PCR) Not Detected (NotDetected) Coronavirus NL63 (PCR) Not Detected (NotDetected) Human Metapneumovir PCR Not Detected (NotDetected) Influenza Type A (PCR) Not Detected (NotDetected) Influenza Type B (PCR) Not Detected (NotDetected) M. pneumoniae (PCR) Not Detected (NotDetected) Parainfluenza 1 (PCR) Not Detected (NotDetected) Parainfluenza 2 (PCR) Not Detected (NotDetected) Parainfluenza 3 (PCR) Not Detected (NotDetected) Parainfluenza 4 (PCR) Not Detected (NotDetected) RSV (PCR) Not Detected (NotDetected) Entero/Rhino (PCR) Not Detected (NotDetected) Administered Medications Albuterol (Albut/Ipratrop 3mg/0.5mg Neb 3 Ml Vial) 3 ml NEB QIDR [facility]; Protocol Stop: 09/12/23 07:07 Last Admin: 08/13/23 18:44 Dose: Not Given Documented By: Admin: 08/13/23 15:43 Dose: 3 ml Documented By: Admin: 08/13/23 11:36 Dose: Not Given Documented By: Admin: 08/13/23 07:59 Dose: 3 ml Documented By: KATHYA Aspirin (Aspirin 81 Mg Ectab) 81 mg PO HS [facility] Stop: 09/12/23 20:59 Last Admin: 08/13/23 21:31 Dose: 81 mg Documented By: MAGALY Budesonide (Budesonide 0.25 Mg/2 Ml Vial (Pulmicort)) 0.25 mg NEB BIDR [facility] Stop: 09/12/23 12:09 Last Admin: 08/13/23 18:43 Dose: 0.25 mg Documented By: Admin: 08/13/23 11:36 Dose: 0.25 mg Documented By: KAM Clopidogrel Bisulfate (Clopidogrel Bisulfate 75 Mg Tab) 75 mg PO QAM [facility] Stop: 09/12/23 08:59 Last Admin: 08/13/23 07:50 Dose: 75 mg Documented By: JOSHUA Formoterol Fumarate (Formoterol 20 Mcg/2 Ml Vial) 20 mcg INH BIDR [facility] Stop: 09/12/23 12:09 Last Admin: 08/13/23 18:43 Dose: 20 mcg Documented By: Admin: 08/13/23 12:26 Dose: Not Given Documented By: KAM Guaifenesin (Guaifenesin 600 Mg Tabcr) 1,200 mg PO Q12 [facility] Stop: 09/12/23 08:59 Last Admin: 08/13/23 21:31 Dose: 1,200 mg Documented By: Admin: 08/13/23 07:50 Dose: 1,200 mg Documented By: JOSHUA Heparin Sodium (Porcine) (Heparin Sod 5,000 Unit/0.5 Ml Vial) 7,500 units SQ Q12 [facility] Stop: 09/12/23 08:59 Last Admin: 08/13/23 20:32 Dose: Not Given Documented By: Admin: 08/13/23 07:51 Dose: Not Given Documented By: JOSHUA Azithromycin 500 mg/ Dextrose 255 mls @ 125 mls/hr IV DAILY [facility] Stop: 08/20/23 07:29 Last Infusion: 08/13/23 09:58 Dose: Infused Documented By: Admin: 08/13/23 07:50 Dose: 125 mls/hr Documented By: JOSHUA Methylprednisolone 40 mg/ (Syringe) 0.64 mls @ 1.5 mls/min IV Q8H [facility] Stop: 09/12/23 08:59 Last Admin: 08/13/23 16:54 Dose: 1.5 mls/min Documented By: Admin: 08/13/23 07:51 Dose: 1.5 mls/min Documented By: JOSHUA Metoprolol Tartrate (Metoprolol Tartrate 25 Mg Tab) 25 mg PO BID [facility] Stop: 09/12/23 08:59 Last Admin: 08/13/23 20:45 Dose: 25 mg Documented By: Admin: 08/13/23 07:50 Dose: 25 mg Documented By: JOSHUA Rosuvastatin Calcium (Rosuvastatin Calcium 10 Mg Tab) 10 mg PO Q2D@2100 [facility] Stop: 09/12/23 20:59 Last Admin: 08/13/23 20:44 Dose: 10 mg Documented By: MAGALY Umeclidinium Canisteo (Umeclidinium [place]isteo 62.5mcg/Blister 7 Puffs/Inhaler) 1 puffs INH DAILY [facility] Stop: 09/12/23 12:14 Last Admin: 08/13/23 13:29 Dose: 1 puffs Documented By: EFREN Discontinued Medications Albuterol (Albut/Ipratrop 3mg/0.5mg Neb 3 Ml Vial) 12 ml NEB ONE ONE; Protocol Stop: 08/13/23 00:21 Last Admin: 08/13/23 00:36 Dose: 12 ml Documented By: GAYLA Albuterol (Albut/Ipratrop 3mg/0.5mg Neb 3 Ml Vial) 12 ml NEB ONE ONE; Protocol Stop: 08/13/23 02:48 Last Admin: 08/13/23 03:16 Dose: 12 ml Documented By: GAYLA Doxycycline Hyclate (Doxycycline Hyclate 100 Mg Cap) 100 mg PO NOW STA Stop: 08/13/23 02:48 Last Admin: 08/13/23 02:57 Dose: 100 mg Documented By: MED Formoterol Fumarate (Formoterol 20 Mcg/2 Ml Vial) Confirm Administered Dose 20 mcg .ROUTE .STK-MED ONE Stop: 08/13/23 11:34 Last Admin: 08/13/23 11:36 Dose: 20 mcg Documented By: KAM Sodium Chloride (Nss) 1,000 mls @ 125 mls/hr IV .Q8H [facility] Stop: 09/12/23 00:29 Last Infusion: 08/13/23 12:25 Dose: Infused Documented By: Infusion: 08/13/23 07:16 Dose: 0 mls/hr Documented By: Admin: 08/13/23 00:59 Dose: 125 mls/hr Documented By: MED Magnesium Sulfate/Dextrose (Magnesium Sulfate / D5w) 1 gm in 100 mls @ 100 mls/hr IV NOW STA Stop: 08/13/23 03:46 Last Infusion: 08/13/23 04:40 Dose: Infused Documented By: hardware installation coordinator: 08/13/23 02:57 Dose: 100 mls/hr Documented By: MED Methylprednisolone (Methylprednisolone 125 Mg/2 Ml Vial) 60 mg IV NOW STA Stop: 08/13/23 00:22 Last Admin: 08/13/23 00:58 Dose: 60 mg Documented By: MED Discharge Plan Visit Data Chief Complaint: Shortness of Breath/Dyspnea Stated Complaint: SOB,CAN'T BREATHE ED Provider: Vannessa Blanca Discharge Problem: Dyspnea, Acute exacerbation of chronic obstructive pulmonary disease (COPD) Patient Disposition: Admitted As Inpatient Discharge Instructions Interventions: ED Discharge Assessment Last Done: 08/13/23 06:57
[2023-08-13] MEDS: ALBUT/IPRATROP 3MG/0.5MG NEB 3 ML VIAL NEB ONE ×2 (00:36→03:16)
[2023-08-13] MEDS: methylPREDNISolone 125 MG/2 ML VIAL IV STA (00:58)
[2023-08-13] MEDS: SODIUM CHLORIDE 0.9% 1,000 ML IV SCH (00:59)
[2023-08-13 01:05] LABS: Albumin Globulin Ratio 1.3 (0.9-2); Albumin Level 4.3 gm/dl (3.4-5.0); BUN Creatinine Ratio 14.3 (10-20); Bilirubin,Total 0.3 mg/dl (0.2-1.0); Calcium 9.1 mg/dl (8.6-10.3); Creatinine Clr Calc Pharmacy 78.1 ml/min; Est GFR (African American) 69.3 ml/min; Est GFR (Non-African American) 59.8 ml/min; Globulin 3.4 gm/dl (2.5-4.0); Magnesium 1.8 mg/dl (1.7-2.4); Potassium 4.4 mmol/L (3.5-5.1); Total Protein 7.7 gm/dl (6.0-8.3)
[2023-08-13 01:12] LABS: Troponin I High Sensitivity 6.5 pg/ml (0-20)
[2023-08-13 01:25] LABS: Basophils # (auto) 0.08 K/uL (0.00-0.20); Basophils % (auto) 0.9 %; Eosinophils # (auto) 0.01 K/uL (0.00-0.50); Eosinophils % (auto) 0.1 %; Hematocrit (blood only) 50.9 % (42.0-52.0); Hemoglobin 16.4 g/dl (14.0-18.0); Immature Granulocytes # (auto) 0.04 K/uL (0.01-0.20); Immature Granulocytes % (auto) 0.4 %; Lymphocytes # (auto) 1.81 K/uL (1.20-3.40); Lymphocytes % (auto) 20.2 %; Mean Corpuscular Hemoglobin 31.2 pg (25.0-34.0); Mean Corpuscular Hgb Conc 32.2 g/dL (32.0-36.0); Mean Platelet Volume 9.9 fL (9.4-12.4); Monocytes # (auto) 0.97 K/uL (0.11-0.59); Monocytes % (auto) 10.8 %; Neutrophils # (auto) 6.04 K/uL (1.40-6.50); Neutrophils % (auto) 67.6 %; Platelet Count 245 K/uL (130-400); RDW Coefficient of Variation 13.2 % (11.5-14.5); RDW Standard Deviation 46.7 fL (36.4-46.3); Red Blood Count 5.25 M/uL (4.70-6.10); White Blood Count 8.95 K/ul (4.8-10.8)
[2023-08-13 02:10] LABS: Adenovirus PCR Not Detected (NotDetected); Bordetella parapertussis PCR Not Detected (NotDetected); Bordetella pertussis PCR Not Detected (NotDetected); Chlamydia pneumoniae PCR Not Detected (NotDetected); Coronavirus 229E PCR Not Detected (NotDetected); Coronavirus CoV-2 (COVID19)PCR Not Detected (NotDetected); Coronavirus HKU1 PCR Not Detected (NotDetected); Coronavirus NL63 PCR Not Detected (NotDetected); Coronavirus OC43PCR Not Detected (NotDetected); Human Metapneumovirus PCR Not Detected (NotDetected); Influenza A PCR Not Detected (NotDetected); Influenza B PCR Not Detected (NotDetected); Mycoplasma pneumoniae PCR Not Detected (NotDetected); Parainfluenza Virus 1 PCR Not Detected (NotDetected); Parainfluenza Virus 2 PCR Not Detected (NotDetected); Parainfluenza Virus 3 PCR Not Detected (NotDetected); Parainfluenza Virus 4 PCR Not Detected (NotDetected); Respiratory Syncytial VirusPCR Not Detected (NotDetected); Rhinovirus/Enterovirus PCR Not Detected (NotDetected)
[2023-08-13] MEDS: DOXYCYCLINE HYCLATE 100 MG CAP PO STA (02:57)
[2023-08-13] MEDS: MAGNESIUM SULFATE / D5W 1 GM/100 ML BAG IV STA (02:57)
--- NOTE | 2023-08-13 06:33 | History & Physical Report ---
Date of Service August 13, 2023 Assessment & Plan (1) Acute exacerbation of chronic obstructive pulmonary disease (COPD): (2) Hypoxia: (3) Current smoker: (4) Morbid obesity: (5) Myocardial Infarction: (6) Hypertension: (7) CAD (coronary artery disease): Plan COPD exacerbation with hypoxia/continued tobacco use disorder/NORM- Tobacco cessation counseling Given Solu-Medrol 60 mg IV, 2 hour-long DuoNeb's, and doxycycline 100 mg p.o. by ED Admit on the following: Solu-Medrol 40 mg IV every 8 hours Duonebs every 4 hours while awake and every 2 hours when necessary. Azithromycin 500 mg IV daily Guaifenesin extended release 12 mg p.o. every 12 hours Patient uses auto CPAP at nighttime Follows with pulmonology Dr. Tipton, who is on service and will be consulted CAD/hypertension/stented coronary arteries in 2003- Patient reports currently undergoing cardiac workup Echocardiogram from 08/06/2023 with ejection fraction 50-55% Continue aspirin, clopidogrel, metoprolol tartrate Hold enalapril History of Present Illness Chief Complaint: The patient presents to the emergency department with 3 days of worsening shortness of breath and dyspnea on exertion with occasional cough Primary Care Provider: Amna Pope MD The patient is a 73-year-old male with a past medical history including COPD, NORM, morbid obesity, hypersomnia, chronic bronchitis, current smoker, lumbar spinal stenosis with neurogenic claudication, CAD status post coronary stent in 2003, and hypertension. The patient presents to the emergency department with 3 days of worsening shortness of breath and dyspnea on exertion. He only had partial improvement with 2 hour-long DuoNeb's and Solu-Medrol 60 mg IV in the ED. Allergies Allergy/AdvReac Type Severity Reaction Status Date / Time No Known Allergies Allergy Mild Verified 08/13/23 01:04 Home Medications Medication Instructions Recorded Confirmed Type aspirin 81 mg chewable tablet 81 mg PO HS 08/08/18 08/13/23 History clopidogrel 75 mg tablet 75 mg PO QAM 08/08/18 08/13/23 History enalapril maleate 5 mg tablet 5 mg PO BID 08/08/18 08/13/23 History metoprolol tartrate 25 mg tablet 25 mg PO BID 08/08/18 08/13/23 History rosuvastatin 10 mg tablet 10 mg PO Q2D 08/08/18 08/13/23 History albuterol sulfate 90 mcg/actuation 2 puff inhalation Q6H PRN 06/23/23 08/13/23 Rx aerosol inhaler Shortness Of Breath Or Wheezing #18 grams Auto Titrating CPAP #1 ea 07/13/23 08/13/23 Rx CPAP Supplies #1 ea 07/13/23 08/13/23 Rx Past Med/Surg History Medical History (Updated 08/13/23 @ 06:57 by Gary Barroso MD) Pulmonary emphysema Noted on pre-op CXR Morbid obesity CAD (coronary artery disease) s/p [place] 2003, cardiac cath x 2, total 4 stents Osteoarthritis Chronic back pain LOWER BACK PAIN WITH PAIN RADIATING DOWN LEFT LEG. Degenerative disc disease Sleep apnea NO DEVICE Myocardial Infarction 2003. CARDIAC CATH IN [facility], STENT PLACEMENT X2, RECATH 2 YEARS LATER, AKHIL WITH 2 STENTS. Hypertension Hyperlipidemia Surgical History History of mandibular surgery for fracture History of cataract extraction with lens replacement B/L History of arthroscopy B/L KNEES History of open reduction and internal fixation (ORIF) procedure ARM History of bowel resection TUMOR EXCISION WITH BOWEL RESECTION. BENIGN History of colonoscopy Family History Mother Colorectal cancer Diabetes Social History Smoking Status: Former smoker Cigarettes Per Day: 15-20; Second Hand Exposure: No; Do You Dip or Chew Tobacco: No; Hx Alcohol Use: No Hx Substance Use: No Preferred Language: French Communication Ability: Effective Dietetic Technician Registered Required: No Beliefs That Will Affect Care: None marital status: Single Current Living Situation: Family and Significant Other current occupational status: retired Feels Safe at Home: Yes Assistive Devices: None Review of Systems Review of Systems: The patient denies chest pain, palpitations, lower extremity swelling, sore throat, fevers, chills, sweats, nausea, vomiting, diarrhea , constipation, abdominal pain, pelvic pain, blood in urine or stool, dysuria, urinary frequency or urgency, lightheadedness, dizziness, headache, memory loss, loss of consciousness, rash, abnormal bruising or bleeding, imbalance, focal or generalized weakness, numbness or tingling in arms or legs, generalized arthralgias or myalgias, back or neck pain, or night sweats. The review of systems is otherwise negative other than for that already noted above, and at least 10 systems have been reviewed. Physical Exam Physical Exam: The patient is awake, alert and oriented 3, well developed and well nourished, normocephalic and atraumatic, lying in bed and in no acute distress. HEENT--PERRL, EOMI, mucous membranes and oropharynx dry. Neck--supple. No JVD. No bruits. Thyroid normal, trachea midline, no adenopathy. Heart--normal S1 and S2. No murmurs, rubs or gallops. Lungs--diffuse inspiratory next-door wheezes bilaterally with few coarse rhonchi. No respiratory distress, no accessory muscle use. Abdomen--normal bowel sounds and soft. Nontender. Nondistended. Morbidly obese Extremities-- No edema. Dermatologic--normal skin turgor, normal color, no abnormal lymph nodes, no rash. Neurologic--cranial nerves II through XII grossly intact. Rheumatologic--limited exam due to body habitus Psychiatric--normal affect. Results & Data Results & Data Vital Signs (Past 12 Hours) Vital Signs Temp Pulse Pulse Resp BP BP Pulse Ox 08/13/23 05:35 116/50 L 08/13/23 05:22 110 H 22 93 08/13/23 03:17 73 19 90 08/13/23 01:53 93 08/13/23 01:06 72 21 119/52 L 95 08/13/23 00:37 22 91 08/13/23 00:01 36.9 C 78 20 149/69 H 92 O2 Del Method 08/13/23 05:35 08/13/23 05:22 Room Air 08/13/23 03:17 Room Air 08/13/23 01:53 Room Air 08/13/23 01:06 08/13/23 00:37 Room Air 08/13/23 00:01 Room Air Laboratory Results Laboratory Results WBC 8.95 K/ul (4.8-10.8) 08/13/23 00:32 RBC 5.25 M/uL (4.70-6.10) 08/13/23 00:32 Hgb 16.4 g/dl (14.0-18.0) 08/13/23 00:32 Hct 50.9 % (42.0-52.0) 08/13/23 00:32 MCV 97.0 fL (80.0-100.0) 08/13/23 00:32 MCH 31.2 pg (25.0-34.0) 08/13/23 00: MCHC 32.2 g/dL (32.0-36.0) 08/13/23 00:32 RDW Std Deviation 46.7 fL (36.4-46.3) H 08/13/23 00:32 RDW Coeff of Grace 13.2 % (11.5-14.5) 08/13/23 00:32 Plt Count 245 K/uL (130-400) 08/13/23 00:32 MPV 9.9 fL (9.4-12.4) 08/13/23 00:32 Immature Gran % (Auto) 0.4 % 08/13/23 00:32 Neut % (Auto) 67.6 % 08/13/23 00:32 Lymph % (Auto) 20.2 % 08/13/23 00:32 [place] % (Auto) 10.8 % 08/13/23 00:32 Eos % (Auto) 0.1 % 08/13/23 00:32 Baso % (Auto) 0.9 % 08/13/23 00:32 Neut # (Auto) 6.04 K/uL (1.40-6.50) 08/13/23 00:32 Lymph # (Auto) 1.81 K/uL (1.20-3.40) 08/13/23 00:32 [place] # (Auto) 0.97 K/uL (0.11-0.59) H 08/13/23 00:32 Eos # (Auto) 0.01 K/uL (0.00-0.50) 08/13/23 00:32 Baso # (Auto) 0.08 K/uL (0.00-0.20) 08/13/23 00:32 Immature Gran # (Auto) 0.04 K/uL (0.01-0.20) 08/13/23 00:32 PT 11.0 Seconds (9.0-12.0) 08/13/23 00:32 INR 1.0 (0.9-1.1) 08/13/23 00:32 Sodium 139 mmol/L (136-145) 08/13/23 00:32 Potassium 4.4 mmol/L (3.5-5.1) 08/13/23 00:32 Chloride 101 mmol/L (98-107) 08/13/23 00:32 Carbon Dioxide 31 mmol/L (21-32) 08/13/23 00:32 Anion Gap 7 (3-11) 08/13/23 00:32 BUN 17 mg/dl (6-23) 08/13/23 00:32 Creatinine 1.19 mg/dl (0.6-1.4) 08/13/23 00:32 Est Cr Clr Drug Dosing 78.1 ml/min 08/13/23 00:32 Est GFR ( Amer) 69.3 ml/min 08/13/23 00:32 Est GFR (Non-Af Amer) 59.8 ml/min 08/13/23 00:32 BUN/Creatinine Ratio 14.3 (10-20) 08/13/23 00:32 Glucose 102 mg/dl (70-99(Fasting)) H 08/13/23 00:32 Calcium 9.1 mg/dl (8.6-10.3) 08/13/23 00:32 Magnesium 1.8 mg/dl (1.7-2.4) 08/13/23 00:32 Total Bilirubin 0.3 mg/dl (0.2-1.0) 08/13/23 00:32 AST 19 U/L (13-39) 08/13/23 00:32 ALT 17 U/L (7-52) 08/13/23 00:32 Alkaline Phosphatase 101 U/L (34-104) 08/13/23 00:32 Troponin I High Sens 6.5 pg/ml (0-20) 08/13/23 00:32 Total Protein 7.7 gm/dl (6.0-8.3) 08/13/23 00:32 Albumin 4.3 gm/dl (3.4-5.0) 08/13/23 00:32 Globulin 3.4 gm/dl (2.5-4.0) 08/13/23 00:32 Albumin/Globulin Ratio 1.3 (0.9-2) 08/13/23 00:32 Lipase 22 U/L (11-82) 08/13/23 00:32 Adenovirus (PCR) Not Detected (NotDetected) 08/13/23 01:00 B. pertussis DNA (PCR) Not Detected (NotDetected) 08/13/23 01:00 B.parapertussis DNA PCR Not Detected (NotDetected) 08/13/23 01:00 C. pneumoniae DNA (PCR) Not Detected (NotDetected) 08/13/23 01:00 Coronavirus OC43 (PCR) Not Detected (NotDetected) 08/13/23 01:00 Coronavirus HKU1 (PCR) Not Detected (NotDetected) 08/13/23 01:00 Coronavirus 229E (PCR) Not Detected (NotDetected) 08/13/23 01:00 SARS-CoV-2 (PCR) Not Detected (NotDetected) 08/13/23 01:00 Coronavirus NL63 (PCR) Not Detected (NotDetected) 08/13/23 01:00 Human Metapneumovir PCR Not Detected (NotDetected) 08/13/23 01:00 Influenza Type A (PCR) Not Detected (NotDetected) 08/13/23 01:00 Influenza Type B (PCR) Not Detected (NotDetected) 08/13/23 01:00 M. pneumoniae (PCR) Not Detected (NotDetected) 08/13/23 01:00 Parainfluenza 1 (PCR) Not Detected (NotDetected) 08/13/23 01:00 Parainfluenza 2 (PCR) Not Detected (NotDetected) 08/13/23 01:00 Parainfluenza 3 (PCR) Not Detected (NotDetected) 08/13/23 01:00 Parainfluenza 4 (PCR) Not Detected (NotDetected) 08/13/23 01:00 RSV (PCR) Not Detected (NotDetected) 08/13/23 01:00 Entero/Rhino (PCR) Not Detected (NotDetected) 08/13/23 01:00 Code Status & VTE Plan Code Status Full code VTE Prophylaxis Plan VTE Prophylaxis will be ordered: Yes PG Care Time/CCT Total # of Minutes Spent Total Time Spent with Patient: Total time spent is greater than 50% in coordination of care (as documented) at patient's floor/unit and/or counseling patient: Coding Level of Care Code 07633 INT INP/OBS CARE MIN Diagnoses Acute exacerbation of chronic obstructive pulmonary disease (COPD) J44.1 Hypoxia R09.02 Current smoker F17.200 Morbid obesity E66.01 Myocardial Infarction I21.9 Hypertension I10 CAD (coronary artery disease) I25.10
[2023-08-13] MEDS ORDERED: ONDANSETRON INJ 2 MG/ML 2 ML VIAL IV PRN (07:08)
[2023-08-13] MEDS ORDERED: ACETAMINOPHEN 325 MG TAB PO PRN (07:08)
[2023-08-13 07:23] LABS: HCO3 VBG 20 mmol/L; Oxygen Saturation VBG 83.2 %; PCO2 VBG 46 mmHg (38-50); PO2 VBG 52 mmHg; pH VBG 7.25 (7.36-7.41)
--- NOTE | 2023-08-13 07:35 | XRay Report ---
XR chest 1V portable CLINICAL HISTORY: Shortness of breath. COMPARISON STUDY: Chest radiograph April 14, 2023. Chest CT August 01, 2023. FINDINGS: Lung volumes are normal. Lungs are clear. There is no pneumothorax or pleural effusion. Car diac size is normal. Mediastinal contours are normal. There is no evidence for pulmonary edema. Subtl e interstitial thickening is unchanged. This is chronic. IMPRESSION: No acute cardiopulmonary findings. No change in appearance of the chest. ACT 112: Negative or not required by law. Electronically signed by: Barron Moody M.D. 08/13/2023 7:34 AM
[2023-08-13] MEDS: CLOPIDOGREL BISULFATE 75 MG TAB PO SCH (07:50)
[2023-08-13] MEDS: guaiFENesin 600 MG TABCR PO SCH (07:50)
[2023-08-13] MEDS: METOPROLOL TARTRATE 25 MG TAB PO SCH (07:50)
[2023-08-13] MEDS: AZITHROMYCIN 500 MG in DEXTROSE 5% 250 ML IV SCH (07:50)
[2023-08-13] MEDS: HEPARIN SOD 5,000 UNIT/0.5 ML VIAL SQ SCH (07:51)
[2023-08-13] MEDS: methylPREDNISolone 40 MG in SYRINGE 0 ML IV SCH (07:51)
[2023-08-13] MEDS: ALBUT/IPRATROP 3MG/0.5MG NEB 3 ML VIAL NEB SCH (07:59)
[2023-08-13] MEDS ORDERED: methylPREDNISolone 1000 MG/16 ML IV SCH (09:00)
--- NOTE | 2023-08-13 10:53 | Pulmonary Consultation ---
Date of Consultation August 13, 2023 Assessment & Plan (1) Acute exacerbation of chronic obstructive pulmonary disease (COPD): (2) Exertional dyspnea: (3) Current smoker: (4) Abnormal chest CT: (5) Morbid obesity: (6) NORM (obstructive sleep apnea): (7) Nocturnal hypoxia: (8) Chronic bronchitis: Plan CT chest 08/01/2023 personally reviewed: Centrilobular and paraseptal emphysema appreciated bilaterally Increased reticular markings and probable early honeycombing appreciated in the right lower lobe No significant mediastinal lymphadenopathy Labs 06/23/2023: SHEKHAR mildly positive 1:40, nuclear speckled, Sjogren's, anti-CCP and rheumatoid factor negative Alpha-1 phenotype and level within normal limit Polysomnography 07/13/2023: AHI 14 with desaturation to 67%. --Acute exacerbation of COPD with emphysema and chronic bronchitis Gold E A component of CPFE > [id number] smoking history Alpha-1 phenotype and level within normal limit Supposed to be on Trelegy 100 at home but unfortunate was not able to afford it, he did get into pharmacy assistance program is supposed to get the inhaler in the near future Respiratory bio fire negative for everything Based on the PFT will decide if he would benefit from pulmonary rehab Absolute eosinophil count 420 on 07/24/2021 For chronic bronchitis advised the patient to use Mucinex on an as-needed basis NIOX 06/23/2023: 17, low Spirometry 06/23/2023: Severe obstructive lung dysfunction FVC 2.24 L 52%, FEV1 1.56 L 48%, FEV1/FVC 67% -- NORM Polysomnography 07/13/2023: AHI 14 with desaturation to 67%. Patient was prescribed auto CPAP but unfortunately he has not received it yet. Will give auto CPAP while in the hospital --Current smoker > [id number] smoking history Persecuting explained the patient that Has tried Wellbutrin in the past but did not find any benefit Does have history of depression but no suicidal ideation, is willing to start Chantix Plan: Start patient on formoterol and budesonide nebulized along with Incruse inhaler Continue with steroids Mucinex with flutter valve. CPAP nightly and as needed shortness of breath. Will benefit from pulmonary rehab on discharge Please note the above document was generated using voice recognition software. It may contain grammatical, syntax or spelling errors.Any formal questions or concerns about the content, text or information contained within the body of this dictation should be directly addressed to the provider for clarification. History of Present Illness Attending Physician: Gary Barroso MD History of Present Illness 73-year-old male present to the hospital for worsening shortness of breath Past medical history: Hypertension, dyslipidemia, coronary artery disease s/p stent approximately 20 years ago, NORM Patient was last seen by me in the clinic on 06/23/2023 At the time of examination said that he has been having issues with his breathing for approximately a week or so progressively getting worse. I saw him last in early June and prescribed on Trelegy inhaler but unfortunately he was not able to afford it. He already reach out to my office and the retail pharmacy merchandiser program has already been notified. He supposed to get the inhaler in the near future. Patient was saturating 93-94% on room air. His systolic blood pressure was in the 100. He was coughing but was not in any respiratory distress Complains of phlegm and brings up clear to yellowish in color. Denies any hemoptysis No chest pain, no headache, no nausea, no vomiting Subjective fever, no chills. No dysuria, no diarrhea Social history:> [id number] smoking history, currently smoking a pack a day, s ocial alcohol, denies any illicit drug use. Used to work as a flatbed truck driver Pets: None Allergies: Denies Asthma: No personal or family history of asthma Lung cancer: No history of lung cancer in the family Allergies Allergy/AdvReac Type Severity Reaction Status Date / Time No Known Allergies Allergy Mild Verified 08/13/23 01:04 Home Medications Medication Instructions Recorded Confirmed Type aspirin 81 mg chewable tablet 81 mg PO HS 08/08/18 08/13/23 History clopidogrel 75 mg tablet 75 mg PO QAM 08/08/18 08/13/23 History enalapril maleate 5 mg tablet 5 mg PO BID 08/08/18 08/13/23 History metoprolol tartrate 25 mg tablet 25 mg PO BID 08/08/18 08/13/23 History rosuvastatin 10 mg tablet 10 mg PO Q2D 08/08/18 08/13/23 History albuterol sulfate 90 mcg/actuation 2 puff inhalation Q6H PRN 06/23/23 08/13/23 Rx aerosol inhaler Shortness Of Breath Or Wheezing #18 grams Auto Titrating CPAP #1 ea 07/13/23 08/13/23 Rx CPAP Supplies #1 ea 07/13/23 08/13/23 Rx Patient History Medical History (Updated 08/13/23 @ 12:14 by Derian Tipton MD, [facility]) Pulmonary emphysema Noted on pre-op CXR Morbid obesity CAD (coronary artery disease) s/p [place] 2003, cardiac cath x 2, total 4 stents Osteoarthritis Chronic back pain LOWER BACK PAIN WITH PAIN RADIATING DOWN LEFT LEG. Degenerative disc disease Sleep apnea NO DEVICE Myocardial Infarction 2003. CARDIAC CATH IN [facility], STENT PLACEMENT X2, RECATH 2 YEARS LATER, AKHIL WITH 2 STENTS. Hypertension Hyperlipidemia Surgical History History of mandibular surgery for fracture History of cataract extraction with lens replacement B/L History of arthroscopy B/L KNEES History of open reduction and internal fixation (ORIF) procedure ARM History of bowel resection TUMOR EXCISION WITH BOWEL RESECTION. BENIGN History of colonoscopy Family History Mother Colorectal cancer Diabetes Social History Smoking Status: Current some day smoker Tobacco Type: Cigarettes Cigarettes Per Day: 15-20; Second Hand Exposure: Yes; Do You Dip or Chew Tobacco: No; Tobacco Cessation Education Requested by Patient: No Hx Alcohol Use: Yes Hx Substance Use: No Preferred Language: Belarusian Communication Ability: Effective Soup Mixer Required: No Beliefs That Will Affect Care: None marital status: Single Current Living Situation: Alone current occupational status: retired Feels Safe at Home: Yes Assistive Devices: None Review of Systems 2 Review of Systems: All systems reviewed & are unremarkable except as noted in HPI & below Physical Exam 2 Physical Exam: Constitutional: No acute distress HEENT: EOMI, PERRLA Respiratory system: Decreased air entry bilaterally, no rhonchi, positive expiratory wheeze bilaterally, positive crackles bilateral lower lobes CVS: S1-S2 positive, no murmurs or gallops, distant heart sounds Abdomen: Soft, nontender, nondistended, positive bowel sounds x4, obese, hematoma appreciated left periumbilical area Extremities: +2 pulses bilaterally radialis/ dorsalis pedis, no cyanosis, +1 pitting edema bilateral lower extremity Neuro: Awake alert oriented x3 Psych: Normal mood and affect G/U: No Anderson Skin: no rashes, warm and dry Lymphatic: no cervical or axillary lymphadenopathy Results & Data Results & Data Vital Signs (Past 12 Hours) Vital Signs Temp Pulse Pulse Resp BP BP Pulse Ox 08/13/23 08:31 97 H 19 126/59 L 95 08/13/23 08:02 103 H 17 96 08/13/23 07:59 102 H 17 96 08/13/23 07:25 08/13/23 07:25 36.4 C L 104 H 24 140/65 92 08/13/23 07:08 08/13/23 05:35 116/50 L 08/13/23 05:22 110 H 22 93 08/13/23 03:17 73 19 90 08/13/23 01:53 93 08/13/23 01:06 72 21 119/52 L 95 08/13/23 00:37 22 91 08/13/23 00:01 36.9 C 78 20 149/69 H 92 Pulse Ox O2 Del Method O2 Del Method FiO2 08/13/23 08:31 Room Air 08/13/23 08:02 Room Air 08/13/23 07:59 21 08/13/23 07:25 Room Air 08/13/23 07:25 Room Air 08/13/23 07:08 95 Room Air 08/13/23 05:35 08/13/23 05:22 Room Air 08/13/23 03:17 Room Air 08/13/23 01:53 Room Air 08/13/23 01:06 08/13/23 00:37 Room Air 08/13/23 00:01 Room Air Laboratory Results 08/13/23 00:32 08/13/23 00:32 PG Care Time/CCT Total # of Minutes Spent Total Time Spent with Patient: Total time spent is greater than 50% in coordination of care (as documented) at patient's floor/unit and/or counseling patient: Coding Level of Care Code 21638 INT INP/OBS CARE 3/75MIN Diagnoses Acute exacerbation of chronic obstructive pulmonary disease (COPD) J44.1 Exertional dyspnea R06.09 Current smoker F17.[address] R93.89 Morbid obesity E66.01 NORM (obstructive sleep apnea) G47.33 Nocturnal hypoxia G47.34 Chronic bronchitis J42
[2023-08-13] MEDS: BUDESONIDE 0.25 MG/2 ML VIAL (PULMICORT) NEB SCH (11:36)
[2023-08-13] MEDS: FORMOTEROL 20 MCG/2 ML VIAL ONE (11:36)
--- NOTE | 2023-08-13 11:58 | Electrocardiogram Report ---
Test Reason : Blood Pressure : / mmHG Vent. Rate : 070 BPM Atrial Rate : 070 BPM P-R Int : 166 ms QRS Dur : 074 ms QT Int : 374 ms P-R-T Axes : 059 015 079 degrees QTc Int : 403 ms Normal sinus rhythm Low voltage QRS Septal infarct , age undetermined Abnormal ECG When compared with ECG of 10-OCT-2012 11:05, Septal infarct is now Present Confirmed by Lino Cortez ([id number]) on 08/13/2023 11:58:29 AM Referred By: REFERRED SELF Confirmed By:Lino Cortez
[2023-08-13] MEDS: FORMOTEROL 20 MCG/2 ML VIAL INH SCH (12:26)
[2023-08-13] MEDS: UMECLIDINIUM BROMIDE 62.5MCG/BLISTER 7 PUFFS/INHALER INH SCH (13:29)
[2023-08-13] MEDS: ROSUVASTATIN CALCIUM 10 MG TAB PO SCH (20:44)
[2023-08-13] MEDS: ASPIRIN 81 MG ECTAB PO SCH (21:31)
[2023-08-14 06:09] LABS: Hematocrit (blood only) 44.4 % (42.0-52.0); Hemoglobin 14.7 g/dl (14.0-18.0); Mean Corpuscular Hemoglobin 31.4 pg (25.0-34.0); Mean Corpuscular Hgb Conc 33.1 g/dL (32.0-36.0); Mean Corpuscular Volume 94.9 fL (80.0-100.0); Platelet Count 230 K/uL (130-400); RDW Coefficient of Variation 13.1 % (11.5-14.5); RDW Standard Deviation 45.9 fL (36.4-46.3); Red Blood Count 4.68 M/uL (4.70-6.10)
[2023-08-14 06:30] LABS: Albumin Level 3.8 gm/dl (3.4-5.0); BUN Creatinine Ratio 23.8 (10-20); Calcium 8.5 mg/dl (8.6-10.3); Creatinine Clr Calc Pharmacy 93.5 ml/min; Est GFR (African American) 84.5 ml/min; Est GFR (Non-African American) 72.9 ml/min; Magnesium 1.9 mg/dl (1.7-2.4); Phosphorus 2.9 mg/dl (2.5-4.9); Potassium 5.1 mmol/L (3.5-5.1)
[2023-08-14 06:32] LABS: Basophils # (auto) 0.03 K/uL (0.00-0.20); Basophils % (auto) 0.1 %; Eosinophils # (auto) 0.01 K/uL (0.00-0.50); Immature Granulocytes # (auto) 0.13 K/uL (0.01-0.20); Immature Granulocytes % (auto) 0.6 %; Lymphocytes # (auto) 0.95 K/uL (1.20-3.40); Lymphocytes % (auto) 4.1 %; Monocytes # (auto) 0.77 K/uL (0.11-0.59); Monocytes % (auto) 3.3 %; Neutrophils # (auto) 21.51 K/uL (1.40-6.50); Neutrophils % (auto) 91.9 %
--- NOTE | 2023-08-14 08:10 | Pulmonology Progress Note ---
Date of Service August 14, 2023 Assessment & Plan (1) Acute exacerbation of chronic obstructive pulmonary disease (COPD): (2) Exertional dyspnea: (3) Current smoker: (4) Abnormal chest CT: (5) Morbid obesity: (6) NORM (obstructive sleep apnea): (7) Nocturnal hypoxia: (8) Chronic bronchitis: Plan CT chest 08/01/2023 personally reviewed: Centrilobular and paraseptal emphysema appreciated bilaterally Increased reticular markings and probable early honeycombing appreciated in the right lower lobe No significant mediastinal lymphadenopathy Labs 06/23/2023: SHEKHAR mildly positive 1:40, nuclear speckled, Sjogren's, anti-CCP and rheumatoid factor negative Alpha-1 phenotype and level within normal limit Polysomnography 07/13/2023: AHI 14 with desaturation to 67%. --Acute exacerbation of COPD with emphysema and chronic bronchitis Gold E A component of CPFE > 28-tcwz-ropr smoking history Alpha-1 phenotype and level within normal limit Supposed to be on Trelegy 100 at home but unfortunate was not able to afford it, he did get into pharmacy assistance program is supposed to get the inhaler in the near future Respiratory bio fire negative for everything Absolute eosinophil count 420 on 07/24/2021 For chronic bronchitis advised the patient to use Mucinex on an as-needed basis NIOX 06/23/2023: 17, low Spirometry 06/23/2023: Severe obstructive lung dysfunction FVC 2.24 L 52%, FEV1 1.56 L 48%, FEV1/FVC 67% -- NORM Polysomnography 07/13/2023: AHI 14 with desaturation to 67%. Patient was prescribed auto CPAP but unfortunately he has not received it yet. Will give auto CPAP while in the hospital --Current smoker > 14-lejw-imue smoking history Persecuting explained the patient that Has tried Wellbutrin in the past but did not find any benefit Does have history of depression but no suicidal ideation, is willing to start Chantix Plan: Continue with formoterol and budesonide nebulized along with Incruse inhaler Continue with steroids, decrease it to 40 mg every 12 Continue with Mucinex and flutter valve. Given hyperkalemia, will give dose of patiromer CPAP nightly and as needed shortness of breath. Will benefit from pulmonary rehab on discharge Advised the patient to get samples of Trelegy 100 from my pulmonary clinic till he gets his legal support assistant program approved Case discussed with primary team Please note the above document was generated using voice recognition software. It may contain grammatical, syntax or spelling errors.Any formal questions or concerns about the content, text or information contained within the body of this dictation should be directly addressed to the provider for clarification. Admission and Anticipated Discharge Date Admission Date: August 13, 2023 Subjective Patient seen and examined at bedside. No acute distress, no adverse events overnight He stated that he is feeling better compared to yesterday He was saturating 92% on room air He did try to use CPAP overnight but did not use it more than 2 hours. Encouraged him to use it more. He is coughing up and bringing up yellowish phlegm. No hemoptysis Review of Systems 2 Review of Systems: All systems reviewed & are unremarkable except as noted in Subjective Physical Exam 2 Physical Exam: Constitutional: No acute distress HEENT: EOMI, PERRLA Respiratory system: Decreased air entry bilaterally, no rhonchi, positive expiratory wheeze bilaterally (improved from before), positive crackles bilateral lower lobes CVS: S1-S2 positive, no murmurs or gallops, distant heart sounds Abdomen: Soft, nontender, nondistended, positive bowel sounds x4, obese, hematoma appreciated left periumbilical area Extremities: +2 pulses bilaterally radialis/ dorsalis pedis, no cyanosis, +1 pitting edema bilateral lower extremity Neuro: Awake alert oriented x3 Psych: Normal mood and affect G/U: No Anderson Skin: no rashes, warm and dry Lymphatic: no cervical or axillary lymphadenopathy Results & Data Results & Data Vital Signs (Past 12 Hours) Vital Signs Temp Pulse Pulse Resp BP Pulse Ox O2 Del Method 08/14/23 07:41 36.4 C L 57 L 18 110/65 91 Room Air 08/14/23 07:19 58 L 08/14/23 06:57 54 L 18 94 Room Air 08/14/23 05:43 57 L 110/74 08/14/23 03:08 36.5 C 61 18 100/48 L 94 Room Air 08/14/23 01:07 62 23 92 08/14/23 00:00 64 08/13/23 23:17 36.5 C 69 18 129/61 95 Room Air 08/13/23 20:44 75 113/61 08/13/23 20:22 Room Air FiO2 08/14/23 07:41 08/14/23 07:19 08/14/23 06:57 08/14/23 05:43 08/14/23 03:08 08/14/23 01:07 21 08/14/23 00:00 08/13/23 23:17 08/13/23 20:44 08/13/23 20:22 Laboratory Results 08/14/23 05:22 08/14/23 05:22 PG Care Time/CCT Total # of Minutes Spent Total Time Spent with Patient: Total time spent is greater than 50% in coordination of care (as documented) at patient's floor/unit and/or counseling patient: Coding Level of Care Code 84146 SUB INP/OBS CARE 3/50MIN Diagnoses Acute exacerbation of chronic obstructive pulmonary disease (COPD) J44.1 Exertional dyspnea R06.09 Current smoker F17.[address] R93.89 Morbid obesity E66.01 NORM (obstructive sleep apnea) G47.33 Nocturnal hypoxia G47.34 Chronic bronchitis J42
--- NOTE | 2023-08-14 09:42 | Hospitalist Progress Note ---
Date of Service August 14, 2023 Assessment & Plan (1) Acute exacerbation of chronic obstructive pulmonary disease (COPD): (2) Hypoxia: (3) Current smoker: (4) Morbid obesity: (5) Myocardial Infarction: (6) Hypertension: (7) CAD (coronary artery disease): Plan COPD exacerbation with hypoxia/continued tobacco use disorder/NORM- Tobacco cessation counseling Patient states shortness of breath and wheeze much better Pulmonology, decreased methylprednisolone to 40 mg twice daily Continue albuterol nebulizer, budesonide and formoterol Azithromycin 500 mg IV daily Guaifenesin extended release 12 mg p.o. every 12 hours Patient uses auto CPAP at nighttime Appreciate neurology recommendations. Patient will need pulmonary rehab upon discharge CAD/hypertension/stented coronary arteries in 2003- Patient reports currently undergoing cardiac workup Echocardiogram from 08/06/2023 with ejection fraction 50-55% Continue aspirin, clopidogrel, metoprolol tartrate Hold enalapril Admission and Anticipated Discharge Date Admission Date: August 13, 2023 Subjective Patient seen and examined, states that shortness of breath and wheeze is 90% better, still coughing up a little bit of sputum. Review of Systems Review of Systems: All systems reviewed are negative, apart from the ones contained in the history. Physical Exam Physical Exam: The patient is awake, alert and oriented 3, well developed and well nourished, normocephalic and atraumatic, lying in bed and in no acute distress. HEENT--PERRL, EOMI, mucous membranes and oropharynx mildly dry Neck--supple. No JVD. No bruits. Thyroid normal, trachea midline, no adenopathy. Heart--normal S1 and S2. No murmurs, rubs or gallops. Lungs--mild expiratory wheeze Abdomen--normal bowel sounds and soft. Extremities--no cyanosis or clubbing. No edema. Dermatologic--normal skin turgor, normal color, no abnormal lymph nodes, no rash. Neurologic--cranial nerves II through XII grossly intact. Rheumatologic--normal range of motion. Psychiatric--normal affect. Results & Data Results & Data Vital Signs (Past 12 Hours) Vital Signs Temp Pulse Pulse Resp BP Pulse Ox O2 Del Method 08/14/23 09:08 97.5 F L 57 L 18 110/65 91 08/14/23 09:03 Room Air 08/14/23 07:41 97.5 F L 57 L 18 110/65 91 Room Air 08/14/23 07:19 58 L 08/14/23 06:57 54 L 18 94 Room Air 08/14/23 05:43 57 L 110/74 08/14/23 03:08 97.7 F 61 18 100/48 L 94 Room Air 08/14/23 01:07 62 23 92 08/14/23 00:00 64 08/13/23 23:17 97.7 F 69 18 129/61 95 Room Air FiO2 08/14/23 09:08 08/14/23 09:03 08/14/23 07:41 08/14/23 07:19 08/14/23 06:57 08/14/23 05:43 08/14/23 03:08 08/14/23 01:07 21 08/14/23 00:00 08/13/23 23:17 PG Care Time/CCT Total # of Minutes Spent Total Time Spent with Patient: Total time spent is greater than 50% in coordination of care (as documented) at patient's floor/unit and/or counseling patient: Coding Level of Care Code 21969 SUB INP/OBS CARE 2/35MIN Diagnoses Acute exacerbation of chronic obstructive pulmonary disease (COPD) J44.1 Hypoxia R09.02 Current smoker F17.200 Morbid obesity E66.01 Myocardial Infarction I21.9 Hypertension I10 CAD (coronary artery disease) I25.10 Time Spent (min) 35
[2023-08-14] MEDS: PATIROMER CALCIUM SORBITEX 8.4 GM PACK PO SCH (11:37)
[2023-08-14] MEDS: methylPREDNISolone 40 MG in SYRINGE 0 ML IV SCH (20:57)
[2023-08-14] MEDS: AZITHROMYCIN 500 MG in DEXTROSE 5% 250 ML IV SCH (21:01)
[2023-08-15 07:22] LABS: Hematocrit (blood only) 46.6 % (42.0-52.0); Hemoglobin 15.6 g/dl (14.0-18.0); Mean Corpuscular Hemoglobin 31.4 pg (25.0-34.0); Mean Corpuscular Hgb Conc 33.5 g/dL (32.0-36.0); Mean Corpuscular Volume 93.8 fL (80.0-100.0); Mean Platelet Volume 10.2 fL (9.4-12.4); Platelet Count 237 K/uL (130-400); RDW Coefficient of Variation 13.2 % (11.5-14.5); RDW Standard Deviation 44.9 fL (36.4-46.3); Red Blood Count 4.97 M/uL (4.70-6.10); White Blood Count 23.49 K/ul (4.8-10.8)
[2023-08-15 07:42] LABS: Albumin Level 3.9 gm/dl (3.4-5.0); BUN Creatinine Ratio 26.1 (10-20); Calcium 8.7 mg/dl (8.6-10.3); Creatinine Clr Calc Pharmacy 102.5 ml/min; Est GFR (African American) 94.6 ml/min; Est GFR (Non-African American) 81.6 ml/min; Magnesium 2.1 mg/dl (1.7-2.4); Phosphorus 3.2 mg/dl (2.5-4.9); Potassium 4.7 mmol/L (3.5-5.1)
[2023-08-15 07:48] LABS: Basophils # (auto) 0.03 K/uL (0.00-0.20); Basophils % (auto) 0.1 %; Immature Granulocytes # (auto) 0.18 K/uL (0.01-0.20); Immature Granulocytes % (auto) 0.8 %; Lymphocytes # (auto) 1.11 K/uL (1.20-3.40); Lymphocytes % (auto) 4.7 %; Monocytes # (auto) 0.84 K/uL (0.11-0.59); Monocytes % (auto) 3.6 %; Neutrophils # (auto) 21.33 K/uL (1.40-6.50); Neutrophils % (auto) 90.8 %
--- NOTE | 2023-08-15 08:51 | Pulmonology Progress Note ---
Date of Service August 15, 2023 Assessment & Plan (1) Acute exacerbation of chronic obstructive pulmonary disease (COPD): (2) Exertional dyspnea: (3) Current smoker: (4) Abnormal chest CT: (5) Morbid obesity: (6) NORM (obstructive sleep apnea): (7) Nocturnal hypoxia: (8) Chronic bronchitis: Plan CT chest 08/01/2023 personally reviewed: Centrilobular and paraseptal emphysema appreciated bilaterally Increased reticular markings and probable early honeycombing appreciated in the right lower lobe No significant mediastinal lymphadenopathy Labs 06/23/2023: SHEKHAR mildly positive 1:40, nuclear speckled, Sjogren's, anti-CCP and rheumatoid factor negative Alpha-1 phenotype and level within normal limit Polysomnography 07/13/2023: AHI 14 with desaturation to 67%. --Acute exacerbation of COPD with emphysema and chronic bronchitis Gold E A component of CPFE > [id number] smoking history Alpha-1 phenotype and level within normal limit Supposed to be on Trelegy 100 at home but unfortunate was not able to afford it, he did get into pharmacy assistance program is supposed to get the inhaler in the near future Respiratory bio fire negative Absolute eosinophil count 420 on 07/24/2021 For chronic bronchitis advised the patient to use Mucinex on an as-needed basis NIOX 06/23/2023: 17, low Spirometry 06/23/2023: Severe obstructive lung dysfunction FVC 2.24 L 52%, FEV1 1.56 L 48%, FEV1/FVC 67% -- NORM Polysomnography 07/13/2023: AHI 14 with desaturation to 67%. Patient was prescribed auto CPAP but unfortunately he has not received it yet. Will give auto CPAP while in the hospital --Current smoker > 24-[id number]-ihcu smoking history Patient notes that he quit "a couple weeks ago". He is determined to stay quit at this time. I congratulated him on his plans for smoking cessation. He is eligible for low-dose lung cancer screening with CT chest in the future and will need pulmonary follow-up in the future with Dr. Cannon. Plan: Continue with formoterol and budesonide nebulized along with Incruse inhaler Will transition to p.o. prednisone 40 mg for total 5 days. Patient will need ICS/LABA/LAMA inhaler upon discharge. He will need follow-up with his primary aircraft electrician, Dr. Tipton upon discharge in 1 to 2 weeks. Patient stable for dismissal from the hospital from pulmonary perspective at this point. No further recommendations. Please call with questions. Admission and Anticipated Discharge Date Admission Date: August 13, 2023 Subjective Patient slept poorly, but notes this is similar to his baseline. He denies any fevers or chills. He feels that his shortness of breath and wheezing have improved significantly. He has been able to walk around without any significant dyspnea. Review of Systems Review of Systems: All systems reviewed & are unremarkable except as noted in HPI & below Physical Exam Physical Exam: Constitutional: No acute distress HEENT: EOMI, PERRLA Respiratory system: Mildly prolonged phase of exhalation. No wheezing. Clear elsewhere. CVS: S1-S2 positive, no murmurs or gallops, distant heart sounds Abdomen: Soft, nontender, nondistended, positive bowel sounds x4, obese, hematoma appreciated left periumbilical area Extremities: +2 pulses bilaterally radialis/ dorsalis pedis, no cyanosis, +1 pitting edema bilateral lower extremity Neuro: Awake alert oriented x3 Psych: Normal mood and affect G/U: No Anderson Skin: no rashes, warm and dry Lymphatic: no cervical or axillary lymphadenopathy Results & Data Results & Data Vital Signs (Past 12 Hours) Vital Signs Temp Pulse Pulse Resp BP Pulse Ox O2 Del Method 08/15/23 07:40 36.6 C 67 18 144/70 H 94 Room Air 08/15/23 07:05 53 L 16 93 Room Air 08/15/23 02:49 36.4 C L 59 L 18 113/60 94 Room Air 08/14/23 22:42 36.5 C 62 18 120/61 94 Room Air 08/14/23 22:00 72 PG Care Time/CCT Total # of Minutes Spent Total Time Spent with Patient: Total time spent is greater than 50% in coordination of care (as documented) at patient's floor/unit and/or counseling patient: Coding Level of Care Code 65662 SUB INP/OBS CARE 2/35MIN Diagnoses Acute exacerbation of chronic obstructive pulmonary disease (COPD) J44.1 Exertional dyspnea R06.09 Current smoker F17.[address] R93.89 Morbid obesity E66.01 NORM (obstructive sleep apnea) G47.33 Nocturnal hypoxia G47.34 Chronic bronchitis J42
--- NOTE | 2023-08-15 11:21 | Discharge Summary ---
Date of Service August 15, 2023 Admission HPI Per Admitting Provider The patient is a 73-year-old male with a past medical history including COPD, NORM, morbid obesity, hypersomnia, chronic bronchitis, current smoker, lumbar spinal stenosis with neurogenic claudication, CAD status post coronary stent in 2003, and hypertension. The patient presents to the emergency department with 3 days of worsening shortness of breath and dyspnea on exertion. He only had partial improvement with 2 hour-long DuoNeb's and Solu-Medrol 60 mg IV in the ED. Principal Diagnosis Acute exacerbation COPD, acute hypoxic respiratory failure Discharge Exam General-alert and oriented x3, no fever, no chills. Morbidly obese HEENT-head atraumatic and normocephalic, pupils equal and reactive to light, extraocular muscles intact Neck-no lymphadenopathy or thyromegaly, trachea midline Chest-diminished breath sounds bilaterally. Very faint end expiratory wheezes. No rhonchi. Cardiac-regular rate and rhythm, normal S1 and S2 Abdomen-normal bowel sounds, no hepatosplenomegaly Extremities-no cyanosis, clubbing, or edema Neuro-cranial nerves II through XII intact, motor and sensory function within normal limits, strength symmetrical, no focal deficits Psych-normal affect, normal mood Discharge Data Allergies Allergy/AdvReac Type Severity Reaction Status Date / Time No Known Allergies Allergy Mild Verified 08/13/23 01:04 Consultations 08/13/23 05:49 ED Decision to Admit Stat 08/13/23 07:08 Consult Pulmonology Routine Hospital Course (1) Acute exacerbation of chronic obstructive pulmonary disease (COPD): Resolved with parenteral steroid therapy and scheduled nebulizers. He will be discharged on a tapering dose of prednisone and continued oral azithromycin for 5 more days (2) Hypoxia: Acute hypoxic respiratory failure present on admission has resolved. He is now on room air (3) Current smoker: Tobacco cessation recommended (4) Morbid obesity: BMI is greater than 40. Significant weight loss recommended (5) Hypertension: Stable. Continue current medical (6) CAD (coronary artery disease): Stable. Continue current medical management Plan Home today, August 14, on a tapering dose of prednisone and continued azithromycin. Follow-up with PCP within 1 week Total Time Total Time Spent Total Time Spent (In Minutes): 45-minute Discharge Plan Discharge Items Patient Disposition: Home - Self-Care Reason For Visit: COPD EXACERBATION, HYPOXIA Discharge Diagnosis: COPD Exacerbation, acute hypoxic respiratory failure Activity: Resume your previous activity Non-emergency contact: Primary Care Provider and Casting And Curing Operator Call non-emergency contact if: you have any medication questions Follow-up/Referrals: Amna Pope MD [Primary Care Provider] - Diet: Regular and Heart Healthy Addtl Attending Provider Instructions: Take prednisone in a tapering dose fashion as directed along with azithromycin daily for 5 more days Pending Studies at Discharge: No Stand-Alone Forms: My [facility] [employer], Smoking Cessation Medications and DC Order Prescriptions: New budesonide-formoterol [Symbicort] 160-4.5 mcg/actuation HFA aerosol inhaler 2 inh inhalation BID Qty: 10.2 0RF azithromycin 500 mg tablet 500 mg PO DAILY 5 Days Qty: 5 0RF prednisone 10 mg tablet See Rx Instructions .ROUTE .COMPLEX Qty: 12 0RF Rx Instructions: 10 mg orally 3 times a day for 2 days, then 10 mg twice a day for 2 days, then 10 mg once a day for 2 days, then stop Continued (DME) Auto Titrating CPAP Misc See Rx Instructions .MEDSUPPLY Qty: 1 0RF Rx Instructions: Auto PAP with 5-18cm H20. Lifetime usage. G47.33 (DME) CPAP Supplies Misc See Rx Instructions .MEDSUPPLY Qty: 1 0RF Rx Instructions: CPAP supplies, mask, headgear, filters, tubing, water chamber. G47.33 albuterol sulfate 90 mcg/actuation HFA aerosol inhaler 2 puff inhalation Q6H PRN (Reason: Shortness Of Breath Or Wheezing) Qty: 18 3RF aspirin 81 mg Tablet,Chewable 81 mg PO HS rosuvastatin 10 mg Tablet 10 mg PO Q2D Rx Instructions: Take every other day at bedtime enalapril maleate 5 mg Tablet 5 mg PO BID clopidogrel 75 mg Tablet 75 mg PO QAM metoprolol tartrate 25 mg Tablet 25 mg PO BID Discharge Orders: Discharge Order (Routine); Ordered 08/15/23 Ordered By: Vitaliy Crews Admission Data Admit Date/Time: 08/13/23 06:32 Attending Provider: Vitaliy Crews Admit Provider: Gary Barroso Primary Care Provider: Amna Pope Other Providers: Gary Barroso; Derian Tipton Coding Level of Care Code 73280 INP/OBS DISCH >30 MIN Diagnoses Acute exacerbation of chronic obstructive pulmonary disease (COPD) J44.1 Hypoxia R09.02 Current smoker F17.200 Morbid obesity E66.01 Hypertension I10 CAD (coronary artery disease) I25.10
[2023-08-16] MEDS ORDERED: predniSONE 20 MG TAB PO SCH (09:00)
== END 2023-08-15 13:34 | disposition home or self-care (01) | DRG 191 ==
LOC: SUATTDRO → ED 23:59 → SUATTDRO 08-13 06:32 → EDINP 08-13 06:32 → 2S 08-13 06:57